=== PATIENT | female | born 1950 | race Caucasian/White ===

== ENCOUNTER 2019-10-24 13:48 | Outpatient (CLI) | payer MEDICARE ==
[~2019-10-24 13:48] MED LIST: Iopamidol-370 76% 500 ML 1 ML ONE
--- NOTE | 2019-10-24 15:05 | CT ---
EXAM: CT angiogram neck with IV contrast and 3-D reconstruction PROVIDED CLINICAL HISTORY: Carotid artery disease without cerebral infarction. Patient states narrowing seen on ultrasound exami nation involving the carotid arteries. COMPARISON: None FINDINGS: Vascular calcifications are seen in the aortic arch. There is a common origin of the innominate arter y and left common carotid artery with mild atherosclerotic plaque and narrowing involving the origin and proximal left common carotid artery. The innominate artery and bilateral subclavian arteri es are patent. There is mild degree of narrowing involving the right axillary artery due to an eccentric atherosclerotic plaque. There is atherosclerotic plaque and calcification seen involving the distal bilateral common carotid arteries with mild narrowing, but the degree of narrowing is less than 50%. Eccentric soft atherosclerotic plaque is seen in the distal left common carotid artery. Mild narrowing is seen invol ving each proximal internal carotid artery, but the degree of narrowing is less than 50%. Mild atherosclerotic calcifications are seen involving the carotid siphons. The origins of each vertebral artery are not well assessed, but there is question of severe narrowing involving the origin of the left vertebral artery. The remainder of the vertebral arteries demonstrate patency. Basilar artery is patent. The bilateral parotid and submandibular glands demonstrate a normal CT appearance. Prevertebral soft tissues have a normal appearance. Degenerative changes are seen in the cervical spine. IMPRESSION: 1. Atherosclerotic plaque and calcifications involving the distal bilateral common carotid arteries a nd the origin of each internal carotid artery with mild degrees of narrowing, but the degree of narrowing are less than 50%. 2. Suggestion of severe narrowing involving the origin of the left vertebral artery. Origin of the ri ght vertebral artery is obscured due to vascular calcifications.
== END 2019-10-24 13:49 | disposition home or self-care (01) ==
LOC: BICCT 13:48
PROVIDERS: ATTEND Physician Assistant
DX: I77.9 Disorder of arteries and arterioles, unspecified (principal); I65.23 Occlusion and stenosis of bilateral carotid arteries; I70.90 Unspecified atherosclerosis
CPT/HCPCS: 70498; 82565; Q9967

== ENCOUNTER 2020-03-10 17:03 | Inpatient (IN) | payer MEDICARE, OTHER ==
[~2020-03-10 17:03] MED LIST changes: +Benzocaine 20% Spray 60 ML CAN ONE; +Phenylephrine 0.25% Nasal Spray 15 ML BOT ONE
[2020-03-10] MEDS ORDERED: Fentanyl 100 MCG/2 ML VIAL ONE ×2 (17:21→17:50)
--- NOTE | 2020-03-10 17:47 | RAD ---
XR Chest 1 View Portable History: Angioedema. Comparison: Radiograph same day Findings: Anterior tube tip above the ashvin 2.1 cm. Enteric tube tip at the gastric body. Progressive left lung volume loss with atelectatic changes throughout the left upper lobe and left lo wer lobe. Moderate layering left effusion. Impression: Progressive volume loss of the left lung with enlarging left prior pleural effusion.
[2020-03-10 17:49] LABS: Actual Bicarbonate (HCO3a) 18.4 mEq/L (22-28); Analyzer IN Cardio ER; Base Excess (BEa) -7.4 mEq/L (-2.0 to +3.0); CO2 Tension 38.6 mmHg (35.0-45.0); Calcium, Ionized (arterial) 1.08 mmol/L (1.12-1.30); Carboxyhemoglobin (COHb) 0.6 gm% (0.0-3.0); Hemoglobin (Hb) 11.8 g/dL (12.0-16.0); O2 Tension (PaO2), arterial 144.9 mmHg (> 80.0); Potassium - ABG Lab 3.92 mmol/L (3.70-5.30)
[2020-03-10 17:50] LABS: Puncture Site LBA
[2020-03-10] MEDS ORDERED: fentaNYL Citrate/PF 2,000 MCG in Sodium Chloride 0.9% 60 ML IV SCH (18:00)
[2020-03-10] MEDS ORDERED: Acetaminophen 650 MG Suppository PR PRN (18:02)
--- NOTE | 2020-03-10 18:17 | PDOC.HHP ---
Hospitalist HPI - History of Present Illness History of Present Illness: This is a 69-year-old female patient with a history of atrial fibrillation, coronary disease and hypertension who was transferred from [place] on account of acute hypoxic respiratory failure requiring intubation. History was taken from chart and patient's daughter and granddaughter. According to patient's daughter, she complained of sore throat over the previous night and also called her in the middle of the night to converse although her co nversation did not make sense. This morning she remained unwell and was sent to the ED at [place] by her friend. On arrival it was noted that her face and tongue was swelling and she was in respiratory distress requiring intubation. Intubation was difficult and traumaticleading to some bleeding. She is also on Eliquis for A. fib and aspirin and Plavix as well. After intubation she was given epinephrine as she had mild drop in her blood pressure however this has become sustained on IV fluids and not requiring any pressors. She was assessed to have angioedema from the use of ramiprilACE inhibitor. Blood pressure at presentation was 99/63, she had a leukocytosis of 12.6, mild hyponatremia of 134, folate was low at 4 and TSH was elevated at 13.9. Chest x-ray was concerning for widened mediastinumED physician ordered a CTA to further evaluate that. Hospitalist was consulted to admit patient. Hospitalist ROS - Review of Systems ROS unobtainable: due to endotracheal tube Hospitalist History - Past Medical History Cardiac: reports: AFIB, HTN - Past Surgical History Other Surgical History: Fracture repair - Social History Smoking Status: Current every day smoker Alcohol: reports: Rare Living Situation: Alone Activity level: independent ambulation - Exam General - other findings: On ventilator support. Noncommunicating but spontaneous movements ENT - other findings: Bleeding from nose and mouth. Heart: RRR, no murmur, no gallops, normal peripheral pulses Respiratory - other findings: Bilateral wheezing. Gastrointestinal: soft, non-distended, normal bowel sounds Extremities: no cyanosis, no clubbing, no edema Hospitalist Results - Labs Lab results: ABG pH 7.30 (7.35-7.45) L 03/10/20 17:44 ABG pCO2 38.6 mmHg (35.0-45.0) 03/10/20 17:44 ABG pO2 144.9 mmHg (> 80.0) H 10/11/20 17:44 Hospitalist H&P A/P - Plan Plan: This is a 69-year-old female patient with a history of A. fib on Eliquis, hypertension who was brought brought in as a transfer from [place] on account of acute hypoxic respiratory failure secondary to angioedema requiring intubation. She will be admitted to the ICU. Acute hypoxic respiratory failure In the setting of angioedema Continue intubation Consult pulmonology. Hypertension Blood pressure stable Hold blood pressure medications for now Contraindicated YOAN inhibitors. A. fib Currently not in A. fib RVR We will hold Eliquis and monitor. Bleeding from mouth. Likely secondary to traumatic intubation We will hold aspirin and Plavix and Eliquis for tonight. Close monitoring Hemoglobin stable so far We will monitor. VT prophylaxisSCD
[2020-03-10 18:19] LABS: #Basophils 0.1 thou/uL (0.0-0.2); #Lymphocytes 0.7 thou/uL (1.20-3.40); #Monocytes 0.4 thou/uL (0.11-0.59); #Neutrophils 11.1 thou/uL (1.40-6.50); %Basophils 0.5 % (0.0-1.0); %Eosinophils 0.3 % (0.0-10.0); %Lymphocytes 5.4 % (21.0-51.0); %Monocytes 3.6 % (0.0-10.0); %Neutrophils 90.2 % (42.0-75.0); Hemoglobin 12.8 g/dL (12.0-16.0); Mean Corpuscular HGB CONC 33.4 g/dL (32.0-36.0); Mean Corpuscular Hemoglobin 32.6 pg (27.0-31.0); Mean Corpuscular Volume 97.6 fL (78.0-98.0); Mean Platelet Volume 9.8 fL (7.4-10.4); Platelet Count 155 thou/uL (130-400); RBC Distribution Width 14.3 % (11.5-14.5); Red Blood Cell (RBC) Count 3.92 mill/uL (4.20-5.40); White Blood Cell (WBC) Count 12.3 thou/uL (4.8-10.8)
[2020-03-10 18:23] LABS: INR-International Normal Ratio 1.2; PTT 24.4 sec (22.9-36.1); Prothrombin Time 15.3 sec (12.0-14.7)
[2020-03-10 18:37] LABS: ALT (SGPT) 9 U/L (8-55); AST (SGOT) 24 U/L (5-34); Alkaline Phosphatase 75 U/L (40-110); Anion Gap 17 mmol/L (10-20); BUN (Urea Nitrogen) 12 mg/dL (9.8-20.1); Bilirubin, Total 0.9 mg/dL (0.2-1.2); Calc. Creatinine Clearance 0 mL/min (70-130); Calcium 7.8 mg/dL (7.8-10.44); Carbon Dioxide 18 mmol/L (23-31); Chloride 103 mmol/L (98-107); Estimated GFR-MDRD 64; Globulin 2.3 g/dL (2.4-3.5); Glucose 125 mg/dL (80-115); Potassium 4.1 mmol/L (3.5-5.1); Protein, Total 6.3 g/dL (6.0-8.3); Sodium 134 mmol/L (136-145)
--- NOTE | 2020-03-10 18:41 | CT ---
CT Chest Abd Pelvis W Con History: Angioedema Comparison: None. Findings: Endotracheal tube tip is below the ashvin. The enteric tube tip is in the gastric body. Ate lectasis throughout the lung bases as well as right middle lobe, lingula, and posterior aspect of both upper lobes. No pneumothorax. No large effusion. Pulmonary trunk is enlarged. Small volume pericardial fluid. No mediastinal adenopathy. Hypodense cholelithiasis is present. Liver is unremarkable. Spleen is unremarkable. Mild pancreatic a trophy. No hydronephrosis. High-grade narrowing of the proximal 3 cm celiac artery, 70-80%, with peripheral f low. Celiac trunk is patent. Mild nodularity left adrenal gland. Moderate mucosal hyperenhancement throughout the colon and terminal ileum. No wall thickening or subm ucosal edema. No acute osseous and amounted. Sternum and manubrium are intact. Impression: 1. No acute inflammatory process within the chest, abdomen or pelvis. 2. High-grade atelectasis throughout the posterior aspect of the lungs. 3. Satisfactory location of the enteric and endotracheal tubes. 4. Angioedema related mucosal hyperenhancement of the distal small bowel and colon. 5. High-grade 70-80% narrowing of the superior mesenteric artery due to soft plaque with peripheral f low. 6. Hypodense cholelithiasis without cholecystitis.
[2020-03-10] MEDS ORDERED: Oxymetazoline HCl 0.05% (30 ML BOT) ONE (18:51)
[2020-03-10] MEDS ORDERED: Morphine 2 MG/ML VIAL SLOW IVP PRN (19:15)
[2020-03-10] MEDS ORDERED: Lorazepam 2 MG/ML VIAL SLOW IVP PRN (19:15)
[2020-03-10] MEDS ORDERED: Fentanyl BOLUS 250 ML IVPB PRN (19:15)
[2020-03-10] MEDS ORDERED: DISCONTINUE PREVIOUS NARCOTIC PAIN MEDICATIONS AND BENZODIAZEPINES FS SCH (19:15)
[2020-03-10] MEDS ORDERED: Propofol BOLUS 1,000 MG/100 ML VIAL IV PRN (19:15)
[2020-03-10] MEDS ORDERED: Sodium Chloride 0.9% 500 ML IV SCH (22:15)
[2020-03-10] MEDS ORDERED: Atropine Sulfate 1 mg/10 ml Syringe ONE (22:48)
[2020-03-10] MEDS ORDERED: Cyanocobalamin 1000 MCG/ML VIAL IM SCH (23:00)
--- NOTE | 2020-03-10 23:29 | RAD ---
XR Chest 1 View Portable History: Evaluate tube placement Comparison: Radiograph same day Findings: Enteric tube tip at the clavicular level. Enteric tube tip below diaphragm although out of field of view. Extensive lower lobe atelectasis. Impression: Satisfactory location of the enteric and endotracheal tubes.
[2020-03-10] MEDS ORDERED: Famotidine/PF 20 mg/2ml Vial SLOW IVP SCH (23:45)
[2020-03-10] MEDS: Sodium Chloride 0.9% 1,000 ML IV SCH (23:53)
[2020-03-10] MEDS: methylPREDNISolone Sod Succ/PF 125 MG/2 ML VIAL IVP SCH (23:54)
[2020-03-11] MEDS: Norepinephrine 8 MG/0.9% NS 250 ML IVPB SCH (01:57)
[2020-03-11 03:27] LABS: #Lymphocytes 0.8 thou/uL (1.20-3.40); #Monocytes 0.3 thou/uL (0.11-0.59); %Basophils 0.3 % (0.0-1.0); %Eosinophils 0.1 % (0.0-10.0); %Lymphocytes 6.3 % (21.0-51.0); %Monocytes 2.4 % (0.0-10.0); Hemoglobin 11.3 g/dL (12.0-16.0); Mean Corpuscular HGB CONC 34.2 g/dL (32.0-36.0); Mean Corpuscular Hemoglobin 33.2 pg (27.0-31.0); Mean Platelet Volume 10.3 fL (7.4-10.4); Platelet Count 157 thou/uL (130-400); RBC Distribution Width 14.5 % (11.5-14.5); Red Blood Cell (RBC) Count 3.41 mill/uL (4.20-5.40); White Blood Cell (WBC) Count 12.1 thou/uL (4.8-10.8)
[2020-03-11 03:45] LABS: Anion Gap 17 mmol/L (10-20); BUN (Urea Nitrogen) 13 mg/dL (9.8-20.1); Calc. Creatinine Clearance 94 mL/min (70-130); Calcium 7.7 mg/dL (7.8-10.44); Carbon Dioxide 14 mmol/L (23-31); Chloride 107 mmol/L (98-107); Estimated GFR-MDRD 69; Glucose 129 mg/dL (80-115); Potassium 3.9 mmol/L (3.5-5.1); Sodium 134 mmol/L (136-145)
[2020-03-11] MEDS: Sodium Chloride 0.9% 1,000 ML IV SCH ×3 (05:54→20:19)
[2020-03-11 07:15] LABS: Analyzer IN Cardio ER; Base Excess (BEa) -10.6 mEq/L (-2.0 to +3.0); CO2 Tension 32.1 mmHg (35.0-45.0); Calcium, Ionized (arterial) 1.16 mmol/L (1.12-1.30); Carboxyhemoglobin (COHb) 0.3 gm% (0.0-3.0); Hemoglobin (Hb) 11.9 g/dL (12.0-16.0); O2 Tension (PaO2), arterial 74.7 mmHg (> 80.0); Potassium - ABG Lab 3.66 mmol/L (3.70-5.30); pH, Arterial 7.29 (7.35-7.45)
[2020-03-11 07:20] LABS: ALV-art Gradient 170.375 mmHg (0-20); Puncture Site LRA
[2020-03-11] MEDS ORDERED: methylPREDNISolone Sod Succ 40 MG VIAL IVP SCH (08:44)
[2020-03-11] MEDS ORDERED: FLU VACC QS2020-21(65YR UP)/PF 240 MCG/0.7 ML SYRINGE IM ONE (09:00)
--- NOTE | 2020-03-11 10:15 | CON ---
DATE OF CONSULTATION: HISTORY OF PRESENT ILLNESS: Kusum Kearns is a 69-year-old female from [place], [place], who was intubated for angioedema presumably. Apparently, she took some YOAN. She is in the ICU. She is apparently bleeding from the back of her nose. She was taking Eliquis about 11 o'clock at midnight. She started having peak pressures. Attending hospice called me to notify me about the problems. Apparently had called the ER physician who appears did a bronchoscopy. Said the airway was patent. I attempted to decrease the tidal volume to see whether the peak pressures were decreased. This morning, she is intubated and sedated. Additional information is outlined. PAST MEDICAL HISTORY: Hypothyroidism, diabetes, hypertension, atrial fibrillation, schizophrenia. PREVIOUS SURGERIES: Has otherwise included wrist surgeries, leg stent. SOCIAL HISTORY: Smoker a pack a day. HOME MEDICINES: 1. Metformin 500. 2. Venlafaxine 150. 3. Altace 5. 4. Synthroid 137. 5. B12. 6. Plavix 75. 7. . 8. Coreg 6.25. 9. Lipitor 20. 10. Aspirin 81. 11. Eliquis 5 mg. ALLERGIES: NONE. PHYSICAL EXAMINATION: VITAL SIGNS: Saturations are 93%, pulse 56, blood pressure 100/80, respiratory rate 20. CHEST: Decreased breath sounds. No wheezing. CARDIAC: Normal S1 and S2. No gallops. ABDOMEN: No masses. LABORATORY DATA: X-ray shows what appears to be left lung atelectasis. PO2 is 74, pCO2 of pressure support 10, PEEP of 5. Lytes are normal. IMPRESSION: Respiratory failure, angioedema, left lung atelectasis, history of apparently schizophrenia, hypertension, diabetes in the process of trying to get information from family members. Otherwise, continue supportive care, PT, neb treatments, steroids. Consider a bronchoscopy to assess the airways. This is a 45-minute critical care time. Job ID: [id number]
--- NOTE | 2020-03-11 10:20 | RAD ---
EXAM: CHEST ONE VIEW HISTORY: Central line placement. COMPARISON: 03/10/2020 FINDINGS: Endotracheal tube and nasogastric tube remain in place and unchanged in position. There has been inte rval placement of a left subclavian central venous catheter with tip overlying the expected location of the cavoatrial junction. No pneumothorax is seen, but there is a pleural-based density pr esent at the left lung apex likely related to pleural fluid or possibly overlying soft tissue density. However, this was not appreciated on the prior exam. There are increased linear densities wi thin the left hilar region and left lung base which could be related to volume loss. Patchy parenchymal densities are seen in the right infrahilar and retrocardiac locations which could be rela mart to atelectasis or pneumonitis. Cardiac silhouette is magnified by projection but does appear mildly enlarged. Vascular calcifications are seen in an ectatic thoracic aorta. IMPRESSION: 1. Interval placement of a left subclavian central venous catheter without pneumothorax visualized; h owever, there is minimal pleural-based density at the left lung apex could be related to either minimal amount of pleural fluid or overlying soft tissue density. 2. Patchy parenchymal densities at each lung base which may represent atelectasis versus bibasilar pn eumonia. Follow-up to resolution is recommended. 3. Left perihilar linear and minimal patchy densities present which could be related to volume loss o r pneumonitis.
[2020-03-11] MEDS: Cefepime 1 GM in Sodium Chloride 0.9% 100 ML IVPB SCH ×2 (10:26→20:51)
[2020-03-11] MEDS: Propofol 1,000 MG/100 ML VIAL IV PRN ×2 (10:27→17:48)
[2020-03-11] MEDS: Famotidine/PF 20 mg/2ml Vial SLOW IVP SCH ×2 (10:27→20:51)
[2020-03-11] MEDS: methylPREDNISolone Sod Succ 40 MG VIAL IVP SCH ×2 (10:33→17:47)
[2020-03-11] MEDS: methylPREDNISolone Sod Succ/PF 125 MG/2 ML VIAL IVP SCH (10:46)
--- NOTE | 2020-03-11 10:46 | OP ---
DATE OF PROCEDURE: 03/11/2020 PREOPERATIVE DIAGNOSES: 1. Acute angioedema. 2. Acute respiratory failure. POSTOPERATIVE DIAGNOSES: 1. Acute angioedema. 2. Acute respiratory failure. PROCEDURE PERFORMED: Placement of triple-lumen left subclavian central venous catheter. INDICATIONS FOR PROCEDURE: A 69-year-old morbidly obese woman, admitted in the ICU with acute angioedema and respiratory failure. The patient is requiring vasopressor support. I was asked to place a central venous access to facilitate therapeutic interventions. DESCRIPTION OF PROCEDURE: Informed consent was obtained from the patient's power of family law attorney. The patient was placed in supine position. Left chest wall was sterilely prepped and draped in the usual fashion. Skin below the left clavicle was anesthetized with 1% lidocaine. Left subclavian vein was cannulated with an 18-gauge introducer needle, returning dark venous blood. Guidewire was passed through the needle and advanced into the left subclavian vein without resistance. The needle was withdrawn over the guidewire. A stab incision was made adjacent to the guidewire using 11 scalpel. Dilator was passed over the guidewire, dilating the subcutaneous tissues. Dilator was removed and a triple-lumen central venous catheter was advanced over the guidewire and placed in the left subclavian vein without resistance, stopping at the 18-cm myranda. Guidewire was removed. Dark venous blood was aspirated from all 3 ports, which were individually flushed with saline. The catheter was secured to anterior chest wall using 3-0 silk suture at 2 points. Sterile dressings were applied. The patient tolerated this procedure without any apparent complications. Chest x-ray was obtained, confirming proper placement and no pneumothorax present. Job ID: [id number]
[2020-03-11] MEDS: fentaNYL Citrate/PF 2,000 MCG in Sodium Chloride 0.9% 60 ML IV SCH (11:11)
--- NOTE | 2020-03-11 12:44 | RAD ---
XR Wrist 3 Rt View STANDARD History: Comparison from surgery. Postsurgical follow-up Comparison: Radiograph December 2019 Findings: Satisfactory postoperative appearance distal radius fracture. Nonunion ulnar styloid fractu re. Subcortical cysts of the scaphoid and lunate at the scapholunate interval. Impression: 1. Healing distal radius fracture. 2. Nonunion ulnar styloid fracture. 3. Subcortical cyst developing of the proximal pole scaphoid and lateral margin of the lunate suggest ing scapholunate ligament injury and micromotion.
--- NOTE | 2020-03-11 15:00 | PDOC.HOSPP ---
- Objective Vital Signs & Weight: Vital Signs (12 hours) Temp Pulse Resp BP Pulse Ox 03/11/20 14:00 20 03/11/20 12:00 98.6 F 20 03/11/20 10:23 60 133/72 03/11/20 10:22 62 20 96 03/11/20 10:00 20 03/11/20 08:00 98.6 F 20 90 L 03/11/20 06:40 60 74/66 L 03/11/20 06:36 49 L 20 93 L 03/11/20 06:00 20 03/11/20 04:00 98.8 F 20 Weight Admit Weight 198 lb 13.711 oz Weight 198 lb 13.711 oz Most Recent Monitor Data Heart Rate from ECG 61 NIBP 98/42 NIBP BP-Mean 60 Respiration from ECG 20 SpO2 100 I&O: 03/10/20 03/11/20 03/12/20 06:59 06:59 06:59 Intake Total 1643.2 500 Output Total 325 240 Balance 1318.2 260 Result Diagrams: 03/11/20 03:05 03/11/20 03:05 Hospitalist ROS - Medication Medications: Active Medications Generic Name Dose Route Start Last Admin Trade Name Freq PRN Reason Stop Dose Admin Albuterol/Ipratropium 3 ml 03/11/20 10:30 03/11/20 10:22 Ipratropium/Albuterol Sulfate 3 Ml Neb NEB 3 ml [id number] CASSIUS Administration Famotidine 20 mg 03/11/20 09:00 03/11/20 10:27 Famotidine/Pf 20 Mg/2ml Vial SLOW IVP 20 mg BID CASSIUS Administration Fentanyl Citrate 2,000 mcg/ 100 mls @ 0 mls/hr 03/10/20 19:15 03/11/20 11:11 Sodium Chloride IV 04/09/20 19:15 100 mls INF CASSIUS Administration Protocol Per Protocol Sodium Chloride 1,000 mls @ 150 mls/hr 03/10/20 23:00 03/11/20 10:29 Normal Saline 0.9% IV 1,000 mls .Q6H40M CASSIUS Administration Norepinephrine Bitartrate 250 mls @ 0 mls/hr 03/11/20 02:00 03/11/20 01:57 Levophed IVPB 250 mls INF CASSIUS Administration Protocol Titrate Cefepime HCl 1 gm/ Sodium 100 mls @ 200 mls/hr 03/11/20 09:00 03/11/20 10:26 Chloride IVPB 100 mls Q12HR CASSIUS Administration Methylprednisolone Sodium Succinate 40 mg 03/11/20 10:00 03/11/20 10:33 Methylprednisolone Sod Succ 40 Mg Vial IVP 40 mg 0200,1000,1800 CASSIUS Administration Propofol 1,000 mg 03/10/20 19:15 03/11/20 10:27 Propofol 1,000 Mg/100 Ml Vial IV 04/09/20 19:15 1,000 mg INF PRN Administration TO ACHIEVE GOAL RASS Protocol
--- NOTE | 2020-03-11 15:28 | PDOC.HOSPP ---
- Subjective Subjective: Patient was seen examined. She remains intubated. Discussed with client delivery specialist, Dr. Mueller. Appreciate his help - Objective Vital Signs & Weight: Vital Signs (12 hours) Temp Pulse Resp BP Pulse Ox 03/11/20 14:00 20 03/11/20 12:00 98.6 F 20 03/11/20 10:23 60 133/72 03/11/20 10:22 62 20 96 03/11/20 10:00 20 03/11/20 08:00 98.6 F 20 90 L 03/11/20 06:40 60 74/66 L 03/11/20 06:36 49 L 20 93 L 03/11/20 06:00 20 03/11/20 04:00 98.8 F 20 Weight Admit Weight 198 lb 13.711 oz Weight 198 lb 13.711 oz Most Recent Monitor Data Heart Rate from ECG 61 NIBP 98/42 NIBP BP-Mean 60 Respiration from ECG 20 SpO2 100 I&O: 03/10/20 03/11/20 03/12/20 06:59 06:59 06:59 Intake Total 1643.2 500 Output Total 325 240 Balance 1318.2 260 Result Diagrams: 03/11/20 03:05 03/11/20 03:05 Radiology Reviewed by me: Yes EKG Reviewed by me: Yes Hospitalist ROS - Medication Medications: Active Medications Generic Name Dose Route Start Last Admin Trade Name Freq PRN Reason Stop Dose Admin Albuterol/Ipratropium 3 ml 03/11/20 10:30 03/11/20 10:22 Ipratropium/Albuterol Sulfate 3 Ml Neb NEB 3 ml [id number] CASSIUS Administration Famotidine 20 mg 03/11/20 09:00 03/11/20 10:27 Famotidine/Pf 20 Mg/2ml Vial SLOW IVP 20 mg BID CASSIUS Administration Fentanyl Citrate 2,000 mcg/ 100 mls @ 0 mls/hr 03/10/20 19:15 03/11/20 11:11 Sodium Chloride IV 04/09/20 19:15 100 mls INF CASSIUS Administration Protocol Per Protocol Sodium Chloride 1,000 mls @ 150 mls/hr 03/10/20 23:00 03/11/20 10:29 Normal Saline 0.9% IV 1,000 mls .Q6H40M CASSIUS Administration Norepinephrine Bitartrate 250 mls @ 0 mls/hr 03/11/20 02:00 03/11/20 01:57 Levophed IVPB 250 mls INF CASSIUS Administration Protocol Titrate Cefepime HCl 1 gm/ Sodium 100 mls @ 200 mls/hr 03/11/20 09:00 03/11/20 10:26 Chloride IVPB 100 mls Q12HR CASSIUS Administration Methylprednisolone Sodium Succinate 40 mg 03/11/20 10:00 03/11/20 10:33 Methylprednisolone Sod Succ 40 Mg Vial IVP 40 mg 0200,1000,1800 CASSIUS Administration Propofol 1,000 mg 03/10/20 19:15 03/11/20 10:27 Propofol 1,000 Mg/100 Ml Vial IV 04/09/20 19:15 1,000 mg INF PRN Administration TO ACHIEVE GOAL RASS Protocol - Exam General - other findings: Intubated and sedated Eye: PERRL ENT: normocephalic atraumatic Neck: supple Heart: RRR Respiratory: CTAB Gastrointestinal: soft Extremities: no cyanosis Skin: normal turgor Neurological - other findings: Intubated and sedated Hosp A/P - Plan Patient is a 69 years old female who has significant past medical history of atrial fib on Eliquis, hypertension, who was transferred from [place] secondary to acute hypoxic respiratory failure due to angioedema, status post intubation. Acute hypoxic respiratory failure -secondary to angioedema --Status post bronchoscopy by Dr. Mueller --cont ventilator support as per pulmonoology --cont empiric IV abx, steroids, nebs as per client delivery specialist Angioedema --d/t ACEi, add to allergy list Atrial Fib --Eliquis on hold d/t bleeding risk from traumatic intubation Hypothyroidism --resume home med when able HTN --BP slightly hypotensive
[2020-03-11 16:12] LABS: SARS-CoV-2 MS2 Positive; SARS-CoV-2 N Gene Negative; SARS-CoV-2 S Gene Negative; SARS-CoV-2 by NAA Not Detected (NotDetected); SARS-CoV-2 orf1ab Negative
[2020-03-11 16:16] LABS: Troponin I 0.136 ng/mL (< 0.028)
--- NOTE | 2020-03-11 19:15 | CON ---
DATE OF CONSULTATION: 03/11/2020 REQUESTING PHYSICIAN: Dr. Tony Mueller. CONSULTING PHYSICIAN: Dr. Rick Richmond. REASON FOR CONSULTATION: Right distal radius metaphyseal fracture postop 2 months, lost to follow up. BRIEF CLINICAL HISTORY: Kusum is a 69-year-old female, who was admitted to [facility] after being transferred from [facility] for acute angioedema and respiratory failure. Our service has been consulted for a right distal radius metaphyseal fracture, which was operated on by Dr. Arana on January 17, 2020. Apparently, she has been lost to follow up. I could not find any x-rays on the patient between now and then. Therefore, the Pulmonary Service requested orthopedic evaluation of the right distal radius. There are no problems noted and this is just a routine consult. PHYSICAL EXAMINATION: Visual inspection of the right upper extremity demonstrates the patient to have a scar which is healed and closed. There is no significant swelling, it is not tight. She does not respond. She is intubated currently and on propofol drip. Otherwise, exam is limited, this does not appear to be a problematic wrist. IMAGING STUDIES: Three views of right wrist demonstrate hardware to appear very near as it was placed two months ago. No lytic changes. No failure. No loosening or backing out of hardware is noted on the three views. IMPRESSION: A 69-year-old female, lost to follow up right distal radius metaphyseal fracture at 7 weeks postop. PLAN: 1. Radiographs were obtained and confirmed hardware placement. 2. We will reestablish a clinical care once the patient is recovering from her respiratory failure. Reconsult as needed. Job ID: [id number]
--- NOTE | 2020-03-11 19:38 | CON ---
DATE OF CONSULTATION: HISTORY OF PRESENT ILLNESS: Kusum Kearns is a 69-year-old white female from [place], admitted with acute hypoxic respiratory failure requiring intubation. In February 2005, she underwent cardiac catheterization by Dr. Elizabeth, which revealed no significant coronary artery disease, no renal artery stenosis, and normal left ventricular function. She currently is followed by Dr. Perez for atrial fibrillation, carotid artery disease, and peripheral vascular disease. She was sent to the emergency room in [place] due to face and tongue swelling as well as respiratory distress. She underwent intubation. She currently remains intubated, cannot give any history. PAST MEDICAL HISTORY: Significant for hypertension, diabetes, atrial fibrillation, schizophrenia, hypothyroidism. OPERATIONS: Tubal ligation, ankle surgery, left popliteal GERIATRIC NURSE ASSISTANT. MEDICATIONS: When she was last seen in the office include: 1. Plavix 75 mg daily. 2. Cilostazol 100 mg b.i.d. 3. Levothyroxine 137 mcg daily. 4. Atorvastatin 20 mg daily. 5. Pramipexole 0.5 mg daily. 6. Venlafaxine 150 mg daily. 7. Carvedilol 6.25 b.i.d. 8. Ramipril 5 mg daily. 9. Aspirin 81 daily. 10. Eliquis 5 mg b.i.d. 11. Metformin 500 mg daily. 12. Folic acid 400 mcg daily. ALLERGIES: NONE. SOCIAL HISTORY: She smokes 6 to 10 cigarettes per day. REVIEW OF SYSTEMS: Unobtainable. PHYSICAL EXAMINATION: VITAL SIGNS: Blood pressure 98/42, pulse of 61. There is a rhythm strip in the chart when she does have some extreme sinus bradycardia with heart rate of 36 per minute around 2248 hours last evening. CHEST: Reveals bilateral rhonchi. CARDIOVASCULAR: S1 and S2 normal without any S3, S4, or murmurs. ABDOMEN: Obese, quiet bowel sounds. EXTREMITIES: Reveal no clubbing, cyanosis, or edema. NEUROLOGIC: The patient is sedated. LABORATORY DATA: EKG-I do not see an EKG on the chart and will be ordered. Hemoglobin 11.3, hematocrit 33.1, white count 12,100, platelets 157,000. PH 7.29, pCO2 of 32.1, pO2 of 74.7. Sodium 134, potassium 3.9, chloride 107, carbon dioxide 14, creatinine 0.83, BUN 13. TSH 13.9884. IMPRESSION: 1. Respiratory arrest, presumably due to angioedema from Ramipril. 2. Hypertension. 3. Diabetes. 4. Hypercholesterolemia. 5. Atrial fibrillation, although she is in sinus rhythm at this time. 6. Peripheral vascular disease. 7. Carotid artery disease. 8. Obesity. PLAN: EKG and cardiac enzymes will be obtained. She did have a significant bradycardic episode, however, has not had any recurrence. We will continue to monitor with you. Job ID: [id number] MONIKA
[2020-03-11] MEDS: Venlafaxine HCl XR 150 MG CAP PO SCH (20:53)
[2020-03-11] MEDS ORDERED: Carvedilol 6.25 MG TAB PO SCH (21:00)
[2020-03-11] MEDS ORDERED: Non-Formulary Item 1 EACH (Venlafaxine Hcl [Venlafaxine Hcl Er] 150 MG Tab.Er.24) PO SCH (21:00)
[2020-03-12] MEDS: Sodium Chloride 0.9% 1,000 ML IV SCH ×3 (02:22→14:44)
[2020-03-12] MEDS: Propofol 1,000 MG/100 ML VIAL IV PRN ×3 (02:23→17:43)
[2020-03-12] MEDS: methylPREDNISolone Sod Succ 40 MG VIAL IVP SCH ×3 (02:23→17:44)
[2020-03-12 05:21] LABS: #Lymphocytes 0.5 thou/uL (1.20-3.40); #Monocytes 0.4 thou/uL (0.11-0.59); #Neutrophils 4.1 thou/uL (1.40-6.50); %Eosinophils 0.1 % (0.0-10.0); %Lymphocytes 10.3 % (21.0-51.0); %Monocytes 7.2 % (0.0-10.0); %Neutrophils 82.4 % (42.0-75.0); Anion Gap 13 mmol/L (10-20); BUN (Urea Nitrogen) 11 mg/dL (9.8-20.1); Calc. Creatinine Clearance 103 mL/min (70-130); Calcium 8.1 mg/dL (7.8-10.44); Carbon Dioxide 19 mmol/L (23-31); Chloride 111 mmol/L (98-107); Estimated GFR-MDRD 73; Glucose 130 mg/dL (80-115); Hemoglobin 9.4 g/dL (12.0-16.0); Mean Corpuscular HGB CONC 33.3 g/dL (32.0-36.0); Mean Corpuscular Hemoglobin 32.6 pg (27.0-31.0); Mean Corpuscular Volume 97.6 fL (78.0-98.0); Mean Platelet Volume 10.5 fL (7.4-10.4); Platelet Count 117 thou/uL (130-400); Platelet Morphology Comment Appears Decreased; Potassium 3.6 mmol/L (3.5-5.1); RBC Distribution Width 14.8 % (11.5-14.5); Red Blood Cell (RBC) Count 2.87 mill/uL (4.20-5.40); Sodium 139 mmol/L (136-145); White Blood Cell (WBC) Count 4.9 thou/uL (4.8-10.8)
[2020-03-12] MEDS: Levothyroxine Sodium 112 MCG TAB PO SCH (05:25)
[2020-03-12] MEDS: Levothyroxine Sodium 25 MCG TAB PO SCH (05:25)
[2020-03-12] MEDS: fentaNYL Citrate/PF 2,000 MCG in Sodium Chloride 0.9% 60 ML IV SCH ×2 (06:00→21:35)
[2020-03-12 07:37] LABS: Actual Bicarbonate (HCO3a) 18.9 mEq/L (22-28); Base Excess (BEa) -5.6 mEq/L (-2.0 to +3.0); CO2 Tension 33.3 mmHg (35.0-45.0); Carboxyhemoglobin (COHb) 0.3 gm% (0.0-3.0); Hemoglobin (Hb) 9.7 g/dL (12.0-16.0); O2 Tension (PaO2), arterial 79.7 mmHg (> 80.0); Potassium - ABG Lab 3.71 mmol/L (3.70-5.30); pH, Arterial 7.37 (7.35-7.45)
[2020-03-12 07:50] LABS: ALV-art Gradient 235.175 mmHg (0-20); Puncture Site RRA
[2020-03-12] MEDS ORDERED: DC Sedation Protocol FS ONE (08:46)
[2020-03-12] MEDS ORDERED: Non-Formulary Item 1 EACH (Levothyroxine Sodium [Levothyroxine Sodium] 137 MCG Tablet) PO SCH (09:00)
--- NOTE | 2020-03-12 09:15 | PRG ---
DATE OF SERVICE: 03/12/2020 SUBJECTIVE: This morning sedation was turned off. She is more responsive. OBJECTIVE: VITAL SIGNS: Saturations are 98%, blood pressure 130/60, pulse rate 18. CHEST: Decreased breath sounds, bilateral rhonchi. CARDIAC: Normal S1 and S2. No masses. LABORATORY DATA: X-ray shows a questionable left-sided infiltrate. PO2 is 79, [id number] ph 7.38, Lytes are normal. Glucose 130. Troponin iselevated . White count 4000, H and H decreased 9 and 28. IMPRESSION: Respiratory failure, angioedema, hypertension, atrial fibrillation, recent fracture, morbid obesity, tobacco abuse. PLAN: We try and wean and extubate today. TIME SPENT: One-half hour of critical time. Job ID: [id number] MTDD
--- NOTE | 2020-03-12 09:20 | RAD ---
PORTABLE CHEST: Date: 03/12/2020 HISTORY: Intubation, on ventilator. CCU follow-up. COMPARISON: 03/11/2020. FINDINGS/IMPRESSION: ET tube, NG tube, and central lines are unchanged. Linear atelectasis in the left mid lung is pronounced today. Hazy opacity of the left lung may repres ent fluid layering posteriorly. Atelectasis and/or infiltrate in the left lung base. Mild vascular en gorgement. Cardiomegaly. No acute change from yesterday. POS: AGW
[2020-03-12] MEDS: Famotidine/PF 20 mg/2ml Vial SLOW IVP SCH ×2 (09:26→20:33)
[2020-03-12] MEDS: Cefepime 1 GM in Sodium Chloride 0.9% 100 ML IVPB SCH ×2 (09:26→20:31)
[2020-03-12] MEDS ORDERED: hydrALAZINE 20 MG/ML VIAL SLOW IVP PRN (09:35)
[2020-03-12] MEDS ORDERED: Magnesium 2 GM/50 ML 2 GM in Premix Bag 1 BAG IVPB SCH (09:45)
[2020-03-12] MEDS ORDERED: Diltiazem 125 MG in Sodium Chloride 0.9% 100 ML IVPB SCH (09:45)
[2020-03-12] MEDS ORDERED: Propofol 1,000 MG/100 ML VIAL IV ONE (09:56)
[2020-03-12] MEDS ORDERED: Ventilator Sedation Protocol 1 EACH FS SCH (10:00)
--- NOTE | 2020-03-12 10:04 | OP ---
DATE OF PROCEDURE: 03/11/2020 PROCEDURE PERFORMED: Diagnostic and therapeutic bronchoscopy. INDICATION: High-peak pressure, left lung atelectasis. POSTBRONCHOSCOPY DIAGNOSIS: High-peak pressure, left lung atelectasis. DESCRIPTION OF PROCEDURE: After informed consent, the patient intubated in the vent and sedated. A bite block in place, adapter on the endotracheal tube. Flexible Olympus bronchoscope was then passed. Distal trachea had copious amounts of secretions, suctioned and lavaged to clear. The left lung had a large volume of pus and mucoid secretions at the basilar segments, which was suctioned and lavaged to clear. Thereafter, the entire left lung upper and lower lobes were visualized. No endobronchial obstruction or blood or pus seen. Right lung was inspected thereafter. This side, less amount of mucus was also suctioned and lavaged to clear. Thereafter, the right upper and right middle lobe were visualized without any endobronchial obstruction or blood or pus seen. Washings were sent for Gram stain, C and S. Otherwise, the patient tolerated the procedure well. Plan is to hopefully try and wean in the next 24 to 48 hours. Job ID: [id number]
[2020-03-12] MEDS: Budesonide 0.25 MG/2 ML NEB INH SCH ×4 (10:07→22:10)
--- NOTE | 2020-03-12 10:16 | RAD ---
XR Chest 1 View Portable HISTORY: Respiratory failure COMPARISON: Earlier exam of 5:09 AM from same date FINDINGS: There has been interval removal of the nasogastric tube since the earlier exam. Other line and tube placements are unchanged in position. There is worsening of opacities in the left lung and new opacities have developed in the right lung since the previous study. The heart size enlarged. No pneumothoraces or large effusions are seen. IMPRESSION: Interval worsening of lung findings since earlier exam
[2020-03-12] MEDS ORDERED: DISCONTINUE PREVIOUS NARCOTIC PAIN MEDICATIONS AND BENZODIAZEPINES FS SCH (10:30)
[2020-03-12] MEDS ORDERED: Propofol BOLUS 1,000 MG/100 ML VIAL IV PRN (10:30)
[2020-03-12] MEDS ORDERED: Morphine 2 MG/ML VIAL SLOW IVP PRN (10:30)
[2020-03-12] MEDS ORDERED: Fentanyl BOLUS 250 ML IVPB PRN (10:30)
--- NOTE | 2020-03-12 11:14 | PRG ---
DATE OF SERVICE: 03/12/2020 SUBJECTIVE: Kusum Kearns, who was extubated about 0845 hours this morning as she was doing well. This subsequently developed hypertension, respiratory distress, marked wheezing or rhonchi. She given neb treatments without any relief. She was placed on a Ventimask. Her sats dropped in the 70s or 80s. Heart rate was 130. Systolic blood pressure 200. She had diffuse wheezing or rhonchi bilaterally. She became clearly encephalopathic. She was back for a period of time. We put her in a bite block. She did not open her mouth and therefore 7.5 endotracheal tube was passed via the right nostril, placed above the ashvin. Both lungs inspected rapidly. There was no endobronchial disease or blood or pus. She is connected to volume cycle respirator. At this stage, she is not weanable. IMPRESSION AND PLAN: 1. Respiratory failure, rule out CHF. 2. Angioedema. 3. Obesity. 4. Tobacco abuse. 5. COPD. Await results of the echocardiogram that has done earlier today. Continue broad-spectrum antibiotics, neb treatments, supportive care, steroids. One-half hour of critical time exclusive of the intubation. Job ID: [id number]
[2020-03-12] MEDS ORDERED: Furosemide 40 MG/4 ML VIAL IVP SCH (11:15)
[2020-03-12] MEDS: Lorazepam 2 MG/ML VIAL SLOW IVP PRN (13:12)
[2020-03-12 13:41] LABS: Base Excess (BEa) -8.7 mEq/L (-2.0 to +3.0); CO2 Tension 55.5 mmHg (35.0-45.0); Calcium, Ionized (arterial) 1.27 mmol/L (1.12-1.30); Hemoglobin (Hb) 11.7 g/dL (12.0-16.0); O2 Tension (PaO2), arterial 76.8 mmHg (> 80.0); Potassium - ABG Lab 3.86 mmol/L (3.70-5.30)
[2020-03-12 13:52] LABS: Puncture Site RRA; pH, Arterial 7.17 (7.35-7.45)
[2020-03-12 13:53] LABS: ALV-art Gradient 210.325 mmHg (0-20)
[2020-03-12] MEDS: Rocuronium Bromide 50 MG/5 ML VIAL IVP PRN (14:34)
[2020-03-12] MEDS: Norepinephrine 8 MG/0.9% NS 250 ML IVPB SCH (15:01)
--- NOTE | 2020-03-12 15:48 | PDOC.HOSPP ---
- Subjective Subjective: Pt was seen and examined at bedside. Updated daughter on the phone. Patient was extubated this morning, however, she was required to place back on the vent after short period. CXR reviewed, vascular congestion. Pt started on IV diuretic. - Objective Vital Signs & Weight: Vital Signs (12 hours) Temp Pulse Resp Pulse Ox 03/12/20 13:57 114 H 03/12/20 10:03 140 H 03/12/20 09:45 92 L 03/12/20 07:17 54 L 03/12/20 06:00 20 03/12/20 04:00 98.1 F 20 Weight Admit Weight 198 lb 13.711 oz Weight 208 lb 12.444 oz Most Recent Monitor Data Heart Rate from ECG 115 NIBP 101/67 NIBP BP-Mean 97 Respiration from ECG 12 SpO2 92 I&O: 03/11/20 03/12/20 03/13/20 06:59 06:59 06:59 Intake Total 1643.2 4549.7 Output Total 325 2235 Balance 1318.2 2314.7 Result Diagrams: 03/12/20 03:57 03/12/20 03:57 Radiology Reviewed by me: Yes EKG Reviewed by me: Yes Hospitalist ROS - Medication Medications: Active Medications Generic Name Dose Route Start Last Admin Trade Name Freq PRN Reason Stop Dose Admin Albuterol/Ipratropium 3 ml 03/11/20 10:30 03/12/20 13:56 Ipratropium/Albuterol Sulfate 3 Ml Neb NEB 3 ml [id number] CASSIUS Administration Budesonide 0.25 mg 03/12/20 10:30 03/12/20 13:56 Budesonide 0.25 Mg/2 Ml Neb INH 0.25 mg [id number] CASSIUS Administration Famotidine 20 mg 03/11/20 09:00 03/12/20 09:26 Famotidine/Pf 20 Mg/2ml Vial SLOW IVP 20 mg BID CASSIUS Administration Norepinephrine Bitartrate 250 mls @ 0 mls/hr 03/11/20 02:00 03/12/20 15:01 Levophed IVPB 250 mls INF CASSIUS Administration Protocol Titrate Cefepime HCl 1 gm/ Sodium 100 mls @ 200 mls/hr 03/11/20 09:00 03/12/20 09:26 Chloride IVPB 100 mls Q12HR CASSIUS Administration Diltiazem HCl 125 mg/ Sodium 125 mls @ 10 mls/hr 03/12/20 09:45 03/12/20 10:36 Chloride IVPB 125 mls INF CASSIUS Administration Protocol 10 MG/HR Sodium Chloride 1,000 mls @ 50 mls/hr 03/12/20 14:45 03/12/20 14:44 Normal Saline 0.9% IV 1,000 mls .Q20H CASSIUS Administration Levothyroxine Sodium 112 mcg 03/12/20 06:00 03/12/20 05:25 Levothyroxine Sodium 112 Mcg Tab PO 112 mcg 0600 CASSIUS Administration Levothyroxine Sodium 25 mcg 03/12/20 06:00 03/12/20 05:25 Levothyroxine Sodium 25 Mcg Tab PO 25 mcg 0600 CASSIUS Administration Lorazepam 2 mg 03/12/20 10:30 03/12/20 13:12 Lorazepam 2 Mg/Ml Vial SLOW IVP 04/11/20 10:30 2 mg Q1H PRN Administration Breakthrough agitation Methylprednisolone Sodium Succinate 40 mg 03/11/20 10:00 03/12/20 09:31 Methylprednisolone Sod Succ 40 Mg Vial IVP 40 mg 0200,1000,1800 CASSIUS Administration Rocuronium [place] 50 mg 03/12/20 14:25 03/12/20 14:34 Rocuronium [place] 50 Mg/5 Ml Vial IVP 03/13/20 14:26 50 mg Q2H PRN Administration movement/vent resistance/agita Sodium Chloride 10 ml 03/11/20 21:00 03/12/20 09:27 Flush - Normal Saline 10 Ml Syringe IVF 10 ml Q12HR CASSIUS Administration Venlafaxine HCl 150 mg 03/11/20 21:00 03/11/20 20:53 Venlafaxine Hcl Xr 150 Mg Cap PO 150 mg QPM CASSIUS Administration - Exam General - other findings: intubated and sedated Eye: PERRL ENT: normocephalic atraumatic Neck: supple Heart: RRR Respiratory: rhonchi Gastrointestinal: soft Extremities: no cyanosis Skin: normal turgor Neurological - other findings: intubated and sedated Hosp A/P - Plan Patient is a 69 years old female who has significant past medical history of atrial fib on Eliquis, hypertension, who was transferred from [place] secondary to acute hypoxic respiratory failure due to angioedema, status post intubation. Acute hypoxic respiratory failure -secondary to angioedema/CHF --remains intubated --Status post bronchoscopy by Dr. Mueller --cont ventilator support as per pulmonoology --cont empiric IV abx, steroids, nebs as per train station server CHF exac, probably acute on chronic, unknown type. Echo pending --cont IV diuresis, follow Echo Angioedema --d/t ACEi, add to allergy list Atrial Fib --Eliquis on hold d/t bleeding risk from traumatic intubation Hypothyroidism --resume home med when able HTN --BP slightly hypotensive Updated family member, daughter, Marlena
[2020-03-12 16:21] LABS: Actual Bicarbonate (HCO3a) 16.7 mEq/L (22-28); Base Excess (BEa) -6.9 mEq/L (-2.0 to +3.0); CO2 Tension 27.9 mmHg (35.0-45.0); Calcium, Ionized (arterial) 1.21 mmol/L (1.12-1.30); Carboxyhemoglobin (COHb) 0.1 gm% (0.0-3.0); Hemoglobin (Hb) 11.9 g/dL (12.0-16.0); O2 Tension (PaO2), arterial 62.7 mmHg (> 80.0)
[2020-03-12 16:23] LABS: ALV-art Gradient 258.925 mmHg (0-20)
[2020-03-12] MEDS ORDERED: Rocuronium Bromide 10 MG/ML (10ML VIAL) IVP PRN (17:11)
--- NOTE | 2020-03-12 18:58 | PRG ---
DATE OF SERVICE: 03/12/2020 HISTORY OF PRESENT ILLNESS: Ms. Kearns this morning was seen and evaluated. She was intubated. I was decided to extubate her today around noon. She failed extubation. She had increased distress and required re-intubation. There was concern for heart failure. Her LVEF did appear slightly diminished estimated at 45% to 50%. She did appear to have grade 3 diastolic dysfunction. PAST MEDICAL HISTORY: Carotid disease, chronic atrial fibrillation, BPH, CAD, hypertension, anemia. MEDICATIONS: Include; 1. Eliquis. 2. Metformin. 3. Folate. 4. Aspirin. 5. Ramipril. 6. Carvedilol. 7. Venlafaxine. 8. Atorvastatin. 9. Levothyroxine. 10. Cilostazol. 11. Clopidogrel. 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 SOCIAL HISTORY: Positive alcohol use. Positive tobacco use. REVIEW OF SYSTEMS: Unobtainable. She is currently intubated, sedated. PHYSICAL EXAMINATION: Vital Signs: Blood pressure 137/80, pulse 80, respirations 20. General: She is currently intubated, sedated. Head, Eyes, Ears, Nose and Throat: Sclerae without icterus. Mouth: Moist mucous membranes, normal palate. Neck: No jugular venous distention. Carotid upstroke is brisk. No bruits bilaterally. Lungs: Clear to auscultation. Heart: Regular rate and rhythm, normal S1 and S2. Abdomen: Soft, nontender, nondistended. Extremities: No edema. PERTINENT LABORATORY DATA: Hemoglobin 9.4, hematocrit 28.1. Peak troponin 0.136. DIAGNOSTIC STUDIES: EKG, sinus rhythm with ST-T wave changes suggesting ischemia. IMPRESSION: 1. Respiratory failure. 2. Abnormal EKG. 3. Diastolic dysfunction. 4. History of atrial fibrillation. 5. PAD. RECOMMENDATIONS: At this point, continue supportive care. She did require re-intubation. Based on her EKG, I would recommend proceeding with coronary angiography when she is more stable. Her troponins have been negative. Her BNP was not markedly elevated at 328. Close observation recommended. Job ID: [id number]
[2020-03-12] MEDS: Venlafaxine HCl XR 150 MG CAP PO SCH (20:33)
[2020-03-13] MEDS: methylPREDNISolone Sod Succ 40 MG VIAL IVP SCH ×3 (01:56→17:53)
[2020-03-13] MEDS: Propofol 1,000 MG/100 ML VIAL IV PRN ×3 (01:56→19:23)
[2020-03-13] MEDS: Budesonide 0.25 MG/2 ML NEB INH SCH ×6 (02:04→22:33)
[2020-03-13] MEDS: Lorazepam 2 MG/ML VIAL SLOW IVP PRN ×2 (02:38→20:25)
[2020-03-13 05:06] LABS: #Lymphocytes 0.5 thou/uL (1.20-3.40); #Monocytes 0.4 thou/uL (0.11-0.59); #Neutrophils 4.3 thou/uL (1.40-6.50); %Eosinophils 0.1 % (0.0-10.0); %Lymphocytes 9.3 % (21.0-51.0); %Monocytes 7.5 % (0.0-10.0); %Neutrophils 83.1 % (42.0-75.0); Mean Corpuscular HGB CONC 32.8 g/dL (32.0-36.0); Mean Corpuscular Hemoglobin 31.9 pg (27.0-31.0); Mean Corpuscular Volume 97.2 fL (78.0-98.0); Mean Platelet Volume 10.2 fL (7.4-10.4); Platelet Count 125 thou/uL (130-400); RBC Distribution Width 14.8 % (11.5-14.5); Red Blood Cell (RBC) Count 2.82 mill/uL (4.20-5.40); White Blood Cell (WBC) Count 5.1 thou/uL (4.8-10.8)
[2020-03-13 05:25] LABS: Anion Gap 11 mmol/L (10-20); BUN (Urea Nitrogen) 15 mg/dL (9.8-20.1); Calc. Creatinine Clearance 77 mL/min (70-130); Calcium 8.2 mg/dL (7.8-10.44); Carbon Dioxide 21 mmol/L (23-31); Chloride 110 mmol/L (98-107); Estimated GFR-MDRD 53; Glucose 137 mg/dL (80-115); Potassium 3.4 mmol/L (3.5-5.1); Sodium 139 mmol/L (136-145)
[2020-03-13 05:32] LABS: Troponin I 0.141 ng/mL (< 0.028)
[2020-03-13] MEDS: Levothyroxine Sodium 112 MCG TAB PO SCH (06:00)
[2020-03-13] MEDS: Levothyroxine Sodium 25 MCG TAB PO SCH (06:00)
[2020-03-13] MEDS: Sodium Chloride 0.9% 1,000 ML IV SCH (06:52)
[2020-03-13 07:40] LABS: Actual Bicarbonate (HCO3a) 18.9 mEq/L (22-28); Base Excess (BEa) -4.4 mEq/L (-2.0 to +3.0); CO2 Tension 28.6 mmHg (35.0-45.0); Calcium, Ionized (arterial) 1.18 mmol/L (1.12-1.30); Carboxyhemoglobin (COHb) 0.3 gm% (0.0-3.0); Hemoglobin (Hb) 9.6 g/dL (12.0-16.0); O2 Tension (PaO2), arterial 107.6 mmHg (> 80.0); Potassium - ABG Lab 3.42 mmol/L (3.70-5.30); pH, Arterial 7.44 (7.35-7.45)
--- NOTE | 2020-03-13 08:17 | RAD ---
Portable frontal chest radiograph: 03/13/2020 COMPARISON: 03/12/2020 HISTORY: Ventilated patient FINDINGS: There is a stable endotracheal tube. Stable left vascular catheter present. The cardiac harish houette is prominent. There is pulmonary vascular congestion with perihilar and bibasilar airspace disease. Blunted both costophrenic angle suggests bilateral pleural effusions, left greater than righ t. No significant interval change when compared to the 03/12/2020 exam per IMPRESSION: Stable appearance of the chest as detailed above. Findings suggest pulmonary edema and/or multi lobar infectious pneumonitis/aspiration.
--- NOTE | 2020-03-13 08:55 | PRG ---
DATE OF SERVICE: 03/13/2020 SUBJECTIVE: Kusum Kearns remains intubated in the vent, sedated. She remains encephalopathic. OBJECTIVE: VITAL SIGNS: Temperature of 98, pulse 72, blood pressure 106/50, respiratory rate 18, and sats 96%. CHEST: Rhonchi and crackles. No wheezing. CARDIAC: Normal S1, S2. No gallops. ABDOMEN: No masses. LABORATORY DATA: White count is 5, H and H are 9 and 27, platelet count . X-ray shows cardiomegaly, cephalization. Lytes are otherwise normal. IMPRESSION: Respiratory failure, diastolic dysfunction, presumed angioedema, history of hypertension, tobacco abuse, hypothyroidism. PLAN: She is not weanable at this stage. We have to put a tube down in the right nostril. Tomorrow, if she is not weanable, I am going to probably switch her over to bronchoscope. Pulmonary is going to follow. One-half hour of critical care time. Job ID: [id number]
[2020-03-13] MEDS: Famotidine/PF 20 mg/2ml Vial SLOW IVP SCH ×2 (09:42→19:52)
[2020-03-13] MEDS: Cefepime 1 GM in Sodium Chloride 0.9% 100 ML IVPB SCH ×2 (09:42→19:51)
[2020-03-13] MEDS: fentaNYL Citrate/PF 2,000 MCG in Sodium Chloride 0.9% 60 ML IV SCH (11:19)
[2020-03-13] MEDS: Rocuronium Bromide 50 MG/5 ML VIAL IVP PRN ×2 (13:06→21:03)
--- NOTE | 2020-03-13 14:30 | PRG ---
DATE OF SERVICE: 03/13/2020 SUBJECTIVE: Ms. Kearns is currently sedated. She is intubated. She is back in sinus rhythm. Cardizem has been discontinued. She continues to be on pressor support. OBJECTIVE: VITAL SIGNS: Blood pressure pulse 63, FiO2 40. LUNGS: Crackles noted bilaterally. HEART: Regular rate and rhythm. ABDOMEN: Soft, nontender, nondistended. EXTREMITIES: No edema. IMAGING: Chest x-ray; pulmonary edema versus multilobar pneumonitis versus aspiration. LABORATORY DATA: Hemoglobin 9.0, hematocrit 27.4. IMPRESSION: 1. Respiratory failure. 2. Diastolic dysfunction. 3. Ongoing tobacco use. 4. Angioedema. RECOMMENDATIONS: Ms. Kearns per Dr. Tony Mueller is not weanable. We will continue respiratory support. Heart rate and blood pressure appears stable and continue CV support as well. Her CK troponins were negative despite a recent respiratory insult. Continue to monitor closely. Job ID: [id number]
[2020-03-13] MEDS ORDERED: Dextrose 50% Abboject 50 ML SYRINGE SLOW IVP PRN (14:47)
[2020-03-13] MEDS ORDERED: Dextrose 5% in Water 1,000 ML IV PRN (14:47)
[2020-03-13] MEDS ORDERED: Insulin Regular 300 UNITS/3 ML VIAL SC PRN (14:47)
--- NOTE | 2020-03-13 14:48 | PDOC.HOSPP ---
- Subjective Subjective: Pt remains on vent support. EF wnl. Cardiology is following - Objective Vital Signs & Weight: Vital Signs (12 hours) Temp Pulse Resp BP Pulse Ox 03/13/20 14:41 60 124/58 L 03/13/20 14:40 60 10 L 97 03/13/20 14:39 60 10 L 97 03/13/20 14:00 10 L 03/13/20 12:00 97.7 F 03/13/20 10:29 62 108/51 L 03/13/20 10:28 65 10 L 96 03/13/20 10:27 65 10 L 96 03/13/20 08:00 97.9 F 03/13/20 07:20 72 109/54 L 98 03/13/20 07:16 61 16 98 03/13/20 06:00 16 03/13/20 04:00 98.8 F 16 Weight Admit Weight 198 lb 13.711 oz Weight 210 lb 5.136 oz Most Recent Monitor Data Heart Rate from ECG 63 NIBP 124/57 NIBP BP-Mean 79 Respiration from ECG 9 SpO2 97 I&O: 03/12/20 03/13/20 03/14/20 06:59 06:59 06:59 Intake Total 4549.7 2030.6 Output Total 2235 2601 195 Balance 2314.7 -570.4 -195 Result Diagrams: 03/13/20 04:52 03/13/20 04:52 Radiology Reviewed by me: Yes EKG Reviewed by me: Yes Hospitalist ROS - Medication Medications: Active Medications Generic Name Dose Route Start Last Admin Trade Name Freq PRN Reason Stop Dose Admin Albuterol/Ipratropium 3 ml 03/11/20 10:30 03/13/20 14:39 Ipratropium/Albuterol Sulfate 3 Ml Neb NEB 3 ml [id number] CASSIUS Administration Budesonide 0.25 mg 03/12/20 10:30 03/13/20 14:40 Budesonide 0.25 Mg/2 Ml Neb INH 0.25 mg [id number] CASSIUS Administration Famotidine 20 mg 03/11/20 09:00 03/13/20 09:42 Famotidine/Pf 20 Mg/2ml Vial SLOW IVP 20 mg BID CASSIUS Administration Norepinephrine Bitartrate 250 mls @ 0 mls/hr 03/11/20 02:00 03/12/20 15:01 Levophed IVPB 250 mls INF CASSIUS Administration Protocol Titrate Cefepime HCl 1 gm/ Sodium 100 mls @ 200 mls/hr 03/11/20 09:00 03/13/20 09:42 Chloride IVPB 100 mls Q12HR CASSIUS Administration Diltiazem HCl 125 mg/ Sodium 125 mls @ 10 mls/hr 03/12/20 09:45 03/12/20 10:36 Chloride IVPB 125 mls INF CASSIUS Administration Protocol 10 MG/HR Fentanyl Citrate 2,000 mcg/ 100 mls @ 0 mls/hr 03/12/20 10:30 03/13/20 11:19 Sodium Chloride IV 04/11/20 10:30 100 mls INF CASSIUS Administration Protocol Per Protocol Sodium Chloride 1,000 mls @ 50 mls/hr 03/12/20 14:45 03/13/20 06:52 Normal Saline 0.9% IV 1,000 mls .Q20H CASSIUS Administration Levothyroxine Sodium 112 mcg 03/12/20 06:00 03/13/20 06:00 Levothyroxine Sodium 112 Mcg Tab PO Not Given 0600 CASSIUS Levothyroxine Sodium 25 mcg 03/12/20 06:00 03/13/20 06:00 Levothyroxine Sodium 25 Mcg Tab PO Not Given 0600 CASSIUS Lorazepam 2 mg 03/12/20 10:30 03/13/20 02:38 Lorazepam 2 Mg/Ml Vial SLOW IVP 04/11/20 10:30 2 mg Q1H PRN Administration Breakthrough agitation Methylprednisolone Sodium Succinate 40 mg 03/11/20 10:00 03/13/20 09:42 Methylprednisolone Sod Succ 40 Mg Vial IVP 40 mg 0200,1000,1800 CASSIUS Administration Propofol 1,000 mg 03/12/20 10:30 03/13/20 09:42 Propofol 1,000 Mg/100 Ml Vial IV 04/11/20 10:30 1,000 mg INF PRN Administration TO ACHIEVE GOAL RASS Protocol Sodium Chloride 10 ml 03/11/20 21:00 03/13/20 09:42 Flush - Normal Saline 10 Ml Syringe IVF 10 ml Q12HR CASSIUS Administration Venlafaxine HCl 150 mg 03/11/20 21:00 03/12/20 20:33 Venlafaxine Hcl Xr 150 Mg Cap PO Not Given QPM CASSIUS - Exam General - other findings: pt is sedated and intubated Eye: PERRL ENT: normocephalic atraumatic Neck: supple Heart: RRR Respiratory: CTAB, no wheezes Gastrointestinal: soft Extremities: no cyanosis Skin: normal turgor Neurological - other findings: pt is sedated and intubated Psychiatric: normal affect Hosp A/P - Plan Patient is a 69 years old female who has significant past medical history of atrial fib on Eliquis, hypertension, who was transferred from [place] secondary to acute hypoxic respiratory failure due to angioedema. Pt was intubated in the ED prior to transfer. Acute hypoxic respiratory failure -secondary to angioedema/CHF --pt remains intubated --Status post bronchoscopy, showed atelectasis on 03/11/20 --cont ventilator support as per pulmonoology --cont empiric IV abx, steroids, nebs treatment CHF exac, probably acute on chronic, diastolic --cont IV diuresis, EF 45-50% --cardiology is following Angioedema --d/t ACEi, add to allergy list Atrial Fib --Eliquis on hold d/t bleeding risk from traumatic intubation Hypothyroidism --resume home med when able HTN --BP slightly hypotensive DM 2 --Metformin on hold. Add ISS
--- NOTE | 2020-03-13 17:27 | EKG ---
Test Reason : Blood Pressure : / mmHG Vent. Rate : 072 BPM Atrial Rate : 072 BPM P-R Int : 138 ms QRS Dur : 080 ms QT Int : 474 ms P-R-T Axes : 070 073 152 degrees QTc Int : 519 ms Normal sinus rhythm Anterolateral ischemia Prolonged QT Abnormal ECG When compared with ECG of 10-MAR-2020 17:23, (Unconfirmed) Premature supraventricular complexes are no longer Present QT has lengthened Confirmed by DR. Kendell JANE ([id number]) on 03/13/2020 5:27:19 PM Referred By: Confirmed By:DR. Kendell JANE
[2020-03-13] MEDS ORDERED: Electrolyte Replacement Protocol FS SCH (17:28)
[2020-03-13] MEDS ORDERED: Furosemide 40 MG/4 ML VIAL SLOW IVP SCH (17:30)
[2020-03-13] MEDS ORDERED: Potassium Chloride 40 MEQ in Premix Bag 1 BAG IVPB SCH (17:45)
[2020-03-13] MEDS ORDERED: Albumin 25% 25 GM/100 ML BOT IVPB SCH (17:45)
[2020-03-13] MEDS: Venlafaxine HCl XR 150 MG CAP PO SCH (19:52)
[2020-03-13] MEDS ORDERED: Rocuronium Bromide 50 MG/5 ML VIAL ONE ×3 (20:51→20:53)
[2020-03-14] MEDS: Budesonide 0.25 MG/2 ML NEB INH SCH ×6 (01:46→22:24)
[2020-03-14] MEDS: methylPREDNISolone Sod Succ 40 MG VIAL IVP SCH ×3 (02:05→18:45)
[2020-03-14] MEDS: Rocuronium Bromide 50 MG/5 ML VIAL IVP PRN ×2 (02:07→06:40)
[2020-03-14] MEDS: Propofol 1,000 MG/100 ML VIAL IV PRN ×2 (04:52→15:53)
[2020-03-14 05:04] LABS: Anion Gap 13 mmol/L (10-20); BUN (Urea Nitrogen) 18 mg/dL (9.8-20.1); Calc. Creatinine Clearance 83 mL/min (70-130); Calcium 8.7 mg/dL (7.8-10.44); Carbon Dioxide 22 mmol/L (23-31); Chloride 109 mmol/L (98-107); Estimated GFR-MDRD 60; Glucose 125 mg/dL (80-115); Potassium 3.8 mmol/L (3.5-5.1); Sodium 140 mmol/L (136-145)
[2020-03-14 05:05] LABS: #Lymphocytes 0.6 thou/uL (1.20-3.40); #Monocytes 0.6 thou/uL (0.11-0.59); #Neutrophils 5.7 thou/uL (1.40-6.50); %Basophils 0.1 % (0.0-1.0); %Eosinophils 0.2 % (0.0-10.0); %Lymphocytes 8.5 % (21.0-51.0); %Monocytes 8.2 % (0.0-10.0); Hemoglobin 9.4 g/dL (12.0-16.0); Mean Corpuscular HGB CONC 33.7 g/dL (32.0-36.0); Mean Corpuscular Hemoglobin 32.8 pg (27.0-31.0); Mean Corpuscular Volume 97.6 fL (78.0-98.0); Mean Platelet Volume 10.1 fL (7.4-10.4); Platelet Count 119 thou/uL (130-400); RBC Distribution Width 14.9 % (11.5-14.5); Red Blood Cell (RBC) Count 2.86 mill/uL (4.20-5.40); White Blood Cell (WBC) Count 6.8 thou/uL (4.8-10.8)
[2020-03-14] MEDS: Levothyroxine Sodium 112 MCG TAB PO SCH (05:53)
[2020-03-14] MEDS: Furosemide 40 MG/4 ML VIAL SLOW IVP SCH ×2 (05:53→14:04)
[2020-03-14] MEDS: Levothyroxine Sodium 25 MCG TAB PO SCH (05:54)
[2020-03-14] MEDS: fentaNYL Citrate/PF 2,000 MCG in Sodium Chloride 0.9% 60 ML IV SCH (07:09)
[2020-03-14 07:13] LABS: Actual Bicarbonate (HCO3a) 24.5 mEq/L (22-28); Base Excess (BEa) -0.9 mEq/L (-2.0 to +3.0); CO2 Tension 43.9 mmHg (35.0-45.0); Calcium, Ionized (arterial) 1.19 mmol/L (1.12-1.30); Carboxyhemoglobin (COHb) 0.2 gm% (0.0-3.0); Hemoglobin (Hb) 10.7 g/dL (12.0-16.0); O2 Tension (PaO2), arterial 74.1 mmHg (> 80.0); Potassium - ABG Lab 3.72 mmol/L (3.70-5.30); pH, Arterial 7.37 (7.35-7.45)
[2020-03-14 07:14] LABS: ALV-art Gradient 156.225 mmHg (0-20); Puncture Site RRA
--- NOTE | 2020-03-14 07:43 | RAD ---
Portable frontal chest radiograph: 03/14/2020 COMPARISON: 03/13/2020 HISTORY: Ventilated patient, respiratory distress FINDINGS: Stable endotracheal tube and enlargement of the cardiac silhouette. Pulmonary vascular neida estion with perihilar interstitial and alveolar opacity, slightly worsened when compared to the prior study. There is obscuration of bilateral hemidiaphragms and blunting of bilateral costophrenic angles with d ense opacity in the left base and hazy airspace disease within the right base. Findings are similar when compared to prior imaging. IMPRESSION: Findings most consistent with slightly worsened interstitial and alveolar opacity. Superi mposed multi lobar infectious pneumonitis/aspiration is a possibility. Continued follow-up to document resolution advised.
--- NOTE | 2020-03-14 09:19 | PRG ---
DATE OF SERVICE: 03/14/2020 SUBJECTIVE: Kusum Kearns remains intubated in the vent, sedated, OBJECTIVE: VITAL SIGNS: Temperature is 98, blood pressure 183/91, respiratory rate 18, sats 95%. CHEST: Bilateral rhonchi. CARDIAC: Normal S1, S2. No gallops. ABDOMEN: No masses. LABORATORY DATA: White count 6000, H and H of 9 and 29, platelet count is 119, decreased. PO2 is 74, pCO2 . Lytes are normal. Glucose 125. IMPRESSION AND PLAN: 1. Respiratory failure. 2. Angioedema. 3. Probably some diastolic dysfunction. 4. Encephalopathy. She is not weanable at this stage. I think the angioedema has resolved. I am going to reintubate her through the mouth. She needs an NG tube. Nutrition. Supportive care. Prognosis remains guarded. One half-hour of critical care time. Job ID: [id number]
[2020-03-14] MEDS: Cefepime 1 GM in Sodium Chloride 0.9% 100 ML IVPB SCH ×2 (10:13→19:34)
[2020-03-14] MEDS: Famotidine/PF 20 mg/2ml Vial SLOW IVP SCH ×2 (10:15→19:35)
[2020-03-14] MEDS: Sodium Chloride 0.9% 1,000 ML IV SCH (10:16)
--- NOTE | 2020-03-14 11:30 | PRG ---
DATE OF SERVICE: 03/14/2020 SUBJECTIVE: This is a 69-year-old female, who was intubated nasally for respiratory failure. She had angioedema. This morning, she felt that we will reassess her oral cavity to see whether we could switch it from nasal to oral. The bronchoscope was passed in the back of the throat. Copious amounts of purulent secretions were seen. This was suctioned several times. Multiple times to visualize the back of the throat were unsuccessful. Tongue appeared to be large at the time when she was intubated. The vocal cords appeared to be unremarkable, but the back of throat was clearly unable to visualize. We are going to leave her intubated. We passed an NG tube. We are going to try and consider getting ENT to visualize the back of the throat at some time. We will keep her sedated, try and avoid paralytics if possible. Job ID: [id number]
--- NOTE | 2020-03-14 12:25 | RAD ---
Abdomen one view HISTORY: Nasogastric tube placement. FINDINGS: Gas and stool over the colon and rectum. Small bowel gas pattern is nonspecific. Pelvis is incompletely imaged. Distal end of a nasogastric tube overlies the gastric fundus. Proximal port at the expected location of the GE junction. IMPRESSION : Advancing the nasogastric tube 10 cm would likely result in better position.
--- NOTE | 2020-03-14 15:46 | PDOC.HOSPP ---
- Subjective Subjective: Patient was seen examined at bedside. Discussed with Dr. Mueller. Appreciate his help. - Objective Vital Signs & Weight: Vital Signs (12 hours) Temp Pulse Pulse Pulse Resp BP BP 03/14/20 14:18 71 143/74 H 03/14/20 14:00 99.1 F 10 L 03/14/20 13:13 90 160/87 H 03/14/20 13:00 98.7 F 03/14/20 12:05 76 68 171/108 H 03/14/20 12:00 10 L 03/14/20 11:15 71 172/80 H 03/14/20 10:00 12 03/14/20 08:00 98.9 F 10 L 03/14/20 07:28 86 183/91 H 03/14/20 06:00 12 03/14/20 05:00 98.7 F 03/14/20 04:00 15 BP Pulse Ox Pulse Ox Pulse Ox 03/14/20 14:18 03/14/20 14:00 03/14/20 13:13 03/14/20 13:00 03/14/20 12:05 135/90 92 L 87 L 03/14/20 12:00 03/14/20 11:15 03/14/20 10:00 03/14/20 08:00 93 L 03/14/20 07:28 03/14/20 06:00 03/14/20 05:00 03/14/20 04:00 97 Weight Admit Weight 198 lb 13.711 oz Weight 201 lb 0.985 oz Most Recent Monitor Data Heart Rate from ECG 69 NIBP 143/74 NIBP BP-Mean 97 Respiration from ECG 10 SpO2 94 I&O: 03/13/20 03/14/20 03/15/20 06:59 06:59 06:59 Intake Total 2030.6 1685.8 Output Total 9661 1471 9576 Balance -570.4 -1244.2 -2346 Result Diagrams: 03/14/20 04:00 03/14/20 04:00 Additional Labs: Accuchecks 03/13/20 21:14 POC Glucose 141 H Radiology Reviewed by me: Yes EKG Reviewed by me: Yes Hospitalist ROS - Medication Medications: Active Medications Generic Name Dose Route Start Last Admin Trade Name Freq PRN Reason Stop Dose Admin Albuterol/Ipratropium 3 ml 03/11/20 10:30 03/14/20 14:17 Ipratropium/Albuterol Sulfate 3 Ml Neb NEB 3 ml [id number] CASSIUS Administration Budesonide 0.25 mg 03/12/20 10:30 03/14/20 14:17 Budesonide 0.25 Mg/2 Ml Neb INH 0.25 mg [id number] CASSIUS Administration Famotidine 20 mg 03/11/20 09:00 03/14/20 10:15 Famotidine/Pf 20 Mg/2ml Vial SLOW IVP 20 mg BID CASSIUS Administration Furosemide 40 mg 03/14/20 06:00 03/14/20 14:04 Furosemide 40 Mg/4 Ml Vial SLOW IVP 40 mg 0600,1400 CASSIUS Administration Norepinephrine Bitartrate 250 mls @ 0 mls/hr 03/11/20 02:00 03/12/20 15:01 Levophed IVPB 250 mls INF CASSIUS Administration Protocol Titrate Cefepime HCl 1 gm/ Sodium 100 mls @ 200 mls/hr 03/11/20 09:00 03/14/20 10:13 Chloride IVPB 100 mls Q12HR CASSIUS Administration Diltiazem HCl 125 mg/ Sodium 125 mls @ 10 mls/hr 03/12/20 09:45 03/12/20 10:36 Chloride IVPB 125 mls INF CASSIUS Administration Protocol 10 MG/HR Fentanyl Citrate 2,000 mcg/ 100 mls @ 0 mls/hr 03/12/20 10:30 03/14/20 07:09 Sodium Chloride IV 04/11/20 10:30 100 mls INF CASSIUS Administration Protocol Per Protocol Sodium Chloride 1,000 mls @ 50 mls/hr 03/12/20 14:45 03/14/20 10:16 Normal Saline 0.9% IV Not Given .Q20H CASSIUS Levothyroxine Sodium 112 mcg 03/12/20 06:00 03/14/20 05:53 Levothyroxine Sodium 112 Mcg Tab PO Not Given 0600 CASSIUS Levothyroxine Sodium 25 mcg 03/12/20 06:00 03/14/20 05:54 Levothyroxine Sodium 25 Mcg Tab PO Not Given 0600 CASSIUS Lorazepam 2 mg 03/12/20 10:30 03/13/20 20:25 Lorazepam 2 Mg/Ml Vial SLOW IVP 04/11/20 10:30 2 mg Q1H PRN Administration Breakthrough agitation Methylprednisolone Sodium Succinate 40 mg 03/11/20 10:00 03/14/20 10:15 Methylprednisolone Sod Succ 40 Mg Vial IVP 40 mg 0200,1000,1800 CASSIUS Administration Propofol 1,000 mg 03/12/20 10:30 03/14/20 04:52 Propofol 1,000 Mg/100 Ml Vial IV 04/11/20 10:30 1,000 mg INF PRN Administration TO ACHIEVE GOAL RASS Protocol Sodium Chloride 10 ml 03/11/20 21:00 03/14/20 10:16 Flush - Normal Saline 10 Ml Syringe IVF 10 ml Q12HR CASSIUS Administration Venlafaxine HCl 150 mg 03/11/20 21:00 03/13/20 19:52 Venlafaxine Hcl Xr 150 Mg Cap PO Not Given QPM CASSIUS - Exam General - other findings: Patient remains intubated and sedated Eye: PERRL ENT: normocephalic atraumatic Neck: supple Heart: RRR Respiratory: CTAB Gastrointestinal: soft Extremities: no cyanosis Skin: normal turgor Neurological - other findings: Sedated Musculoskeletal: normal tone Hosp A/P - Plan Patient is a 69 years old female who has significant past medical history of atrial fib on Eliquis, hypertension, who was transferred from [place] secondary to acute hypoxic respiratory failure due to angioedema. Pt was intubated in the ED prior to transfer. Acute hypoxic respiratory failure - likely multifactorial including an gioedema/CHF/pneumonitis/aspiration --pt remains intubated --Status post bronchoscopy, showed atelectasis on 03/11/20 --cont ventilator support as per pulmonoology --cont empiric IV abx, steroids, nebs treatment CHF exac, probably acute on chronic, diastolic --cont IV diuresis, EF 45-50% --cardiology is following --cont IV diuretic Angioedema --d/t ACEi, add to allergy list Atrial Fib --Eliquis on hold d/t bleeding risk from traumatic intubation Hypothyroidism --resume home med when able HTN --BP slightly hypotensive DM 2 --Metformin on hold. Add ISS
--- NOTE | 2020-03-14 15:54 | PRG ---
DATE OF SERVICE: 03/14/2020 SUBJECTIVE: Ms. Kearns's status is unchanged. She is intubated, sedated. She is off pressors. Blood pressure appears stable. OBJECTIVE: VITAL SIGNS: Blood pressure 143/71, pulse 71, temperature afebrile. LUNGS: Rhonchi, rales bilaterally. HEART: Regular rate and rhythm with extrasystolic beat. ABDOMEN: Soft, nontender, nondistended. EXTREMITIES: No edema. LABORATORY DATA: Hemoglobin 9.4, hematocrit 27.9, platelet count 119. Creatinine 0.93. Peak troponin 0.141. BNP of 328. IMPRESSION: 1. Respiratory failure. 2. Mildly elevated troponin. 3. Tobacco abuse. 4. Diastolic dysfunction. RECOMMENDATIONS: 1. Continue current support. 2. On antibiotic therapy. 3. Agree with low-dose Lasix IV. She does have a component of diastolic dysfunction in addition to a mild cardiomyopathy. I am unsure whether this is the primary or secondary etiology to her current demise. Her BNP is mildly elevated with an LVEF of 45% to 50%. Testing for COVID is being repeated. Job ID: [id number]
[2020-03-14] MEDS: Venlafaxine HCl XR 150 MG CAP PO SCH (19:35)
[2020-03-15] MEDS: methylPREDNISolone Sod Succ 40 MG VIAL IVP SCH ×3 (01:04→17:21)
[2020-03-15] MEDS: Budesonide 0.25 MG/2 ML NEB INH SCH ×6 (02:29→22:03)
[2020-03-15] MEDS: fentaNYL Citrate/PF 2,000 MCG in Sodium Chloride 0.9% 60 ML IV SCH (02:39)
[2020-03-15] MEDS: Sodium Chloride 0.9% 1,000 ML IV SCH (03:05)
[2020-03-15] MEDS: Propofol 1,000 MG/100 ML VIAL IV PRN (03:09)
[2020-03-15 04:44] LABS: #Lymphocytes 0.7 thou/uL (1.20-3.40); #Monocytes 0.5 thou/uL (0.11-0.59); #Neutrophils 7.5 thou/uL (1.40-6.50); %Basophils 0.1 % (0.0-1.0); %Eosinophils 0.4 % (0.0-10.0); %Lymphocytes 7.9 % (21.0-51.0); %Monocytes 6.2 % (0.0-10.0); %Neutrophils 85.4 % (42.0-75.0); Hemoglobin 10.3 g/dL (12.0-16.0); Mean Corpuscular HGB CONC 32.9 g/dL (32.0-36.0); Mean Corpuscular Volume 97.5 fL (78.0-98.0); Platelet Count 153 thou/uL (130-400); RBC Distribution Width 14.7 % (11.5-14.5); Red Blood Cell (RBC) Count 3.22 mill/uL (4.20-5.40); White Blood Cell (WBC) Count 8.7 thou/uL (4.8-10.8)
[2020-03-15 04:52] LABS: Anion Gap 14 mmol/L (10-20); BUN (Urea Nitrogen) 26 mg/dL (9.8-20.1); Calc. Creatinine Clearance 76 mL/min (70-130); Calcium 9.1 mg/dL (7.8-10.44); Carbon Dioxide 27 mmol/L (23-31); Chloride 103 mmol/L (98-107); Estimated GFR-MDRD 56; Glucose 119 mg/dL (80-115); Potassium 3.7 mmol/L (3.5-5.1); Sodium 140 mmol/L (136-145)
[2020-03-15] MEDS: Levothyroxine Sodium 112 MCG TAB PO SCH (04:54)
[2020-03-15] MEDS: Furosemide 40 MG/4 ML VIAL SLOW IVP SCH ×2 (04:55→13:59)
[2020-03-15] MEDS: Levothyroxine Sodium 25 MCG TAB PO SCH (04:55)
[2020-03-15 07:02] LABS: Base Excess (BEa) 4.1 mEq/L (-2.0 to +3.0); Calcium, Ionized (arterial) 1.17 mmol/L (1.12-1.30); Carboxyhemoglobin (COHb) 0.3 gm% (0.0-3.0); Hemoglobin (Hb) 11.4 g/dL (12.0-16.0); O2 Tension (PaO2), arterial 70.9 mmHg (> 80.0); Potassium - ABG Lab 3.58 mmol/L (3.70-5.30); pH, Arterial 7.43 (7.35-7.45)
[2020-03-15 07:04] LABS: Puncture Site LRA
--- NOTE | 2020-03-15 08:32 | PRG ---
DATE OF SERVICE: 03/15/2020 SUBJECTIVE: Ms. Kearns's status is unchanged. She remains intubated. She is off pressors. Blood pressure and heart rate appear stable. OBJECTIVE: VITAL SIGNS: Blood pressure 160/70, pulse 70, and temperature afebrile. LUNGS: Clear to auscultation with mild rhonchi and rales bilaterally. HEART: Regular rate and rhythm. ABDOMEN: Soft, nontender, and nondistended. EXTREMITIES: No edema. PERTINENT LABORATORY DATA: Hemoglobin 10.3. Creatinine 0.99. Troponin 0.141. IMPRESSION: 1. Respiratory failure. 2. Elevated troponin. 3. Abnormal EKG. 4. PAD. RECOMMENDATIONS: 1. Continue respiratory support per Dr. Tony Mueller. 2. Continue Lasix in addition to antibiotic therapy. We will continue to follow. Job ID: [id number]
--- NOTE | 2020-03-15 09:26 | RAD ---
CHEST 1 VIEW: HISTORY: congestive heart failure. COMPARISON: 03/14/2020. FINDINGS: Life support tubes in place including NG tube, endotracheal tube, and left subclavian catheters. Car diomegaly with bilateral vascular congestion and bilateral pleural effusions, larger on the left side . The amount of parenchymal changes has improved slightly. IMPRESSION: Slightly improved findings of congestive heart failure. Continue short-term followup. POS: RRE
[2020-03-15] MEDS: Famotidine/PF 20 mg/2ml Vial SLOW IVP SCH ×2 (09:34→21:52)
[2020-03-15] MEDS: Cefepime 1 GM in Sodium Chloride 0.9% 100 ML IVPB SCH ×2 (09:34→21:52)
--- NOTE | 2020-03-15 10:20 | PRG ---
DATE OF SERVICE: 03/15/2020 SUBJECTIVE: Kusum Kearns remains intubated in the vent, sedated. We had ENT see the patient yesterday, he thought the back of the throat was normal. OBJECTIVE: VITAL SIGNS: Pulse 70, blood pressure 164/73, saturations 99%, respiratory rate 18. Afebrile. I's and O's; 1685 in, 2930 out. CHEST: Extensive rhonchi, crackles. CARDIAC: Normal S1, S2. No gallop. ABDOMEN: Soft. LABORATORY STUDIES: Lytes are normal. White count is only 8000. Blood gases; pO2 is 70, pCO2 is 45, pH 7.43. IMPRESSION: 1. Respiratory failure, felt to be angioedema. 2. Diastolic dysfunction. 3. Possibly aspiration pneumonia. 4. Encephalopathy. PLAN: I am going to hold sedation again to see if we can wean and extubate her. She remains encephalopathic. She is not weanable. She failed the 1st time when I extubated her. She has a tube in the nose. If we are unable to extubate her, we may have to consider trach in the next week. Otherwise, continue all medicines including antibiotics, steroids, neb treatment, and diuretics. TIME SPENT: One-half hour of critical care time. Job ID: [id number]
[2020-03-15] MEDS: niCARdipine 25 MG in Sodium Chloride 0.9% 250 ML 240 ML IVPB SCH ×3 (10:27→14:48)
[2020-03-15] MEDS ORDERED: Enoxaparin Sodium 40 MG/0.4 ML SYRINGE SC SCH (11:00)
[2020-03-15 11:18] LABS: Magnesium 2.2 mg/dL (1.6-2.6)
[2020-03-15] MEDS ORDERED: Fentanyl 100 MCG/2 ML VIAL ONE (11:45)
[2020-03-15 12:54] LABS: SARS-CoV-2 MS2 Positive; SARS-CoV-2 N Gene Negative; SARS-CoV-2 S Gene Negative; SARS-CoV-2 by NAA Not Detected (NotDetected); SARS-CoV-2 orf1ab Negative
[2020-03-15] MEDS: niCARdipine 50 MG in Sodium Chloride 0.9% 250 ML 230 ML IVPB SCH (17:13)
[2020-03-15] MEDS: Carvedilol 6.25 MG TAB PO SCH (17:21)
--- NOTE | 2020-03-15 17:44 | PDOC.HOSPP ---
- Subjective Subjective: s/p extubate. pt tolerated it well. feeling better. answered all questions appropriately - Objective Vital Signs & Weight: Vital Signs (12 hours) Temp Pulse Pulse Pulse Resp BP BP 03/15/20 17:21 164/68 H 03/15/20 16:00 98.7 F 03/15/20 14:20 78 18 03/15/20 12:00 98.9 F 85 94 176/85 H 03/15/20 09:48 103 H 22 H 03/15/20 09:37 138 H 204/121 H 03/15/20 09:18 82 18 03/15/20 08:00 11 L 03/15/20 06:36 70 164/73 H 03/15/20 06:32 77 14 03/15/20 06:00 11 L BP Pulse Ox Pulse Ox Pulse Ox 03/15/20 17:21 03/15/20 16:00 03/15/20 14:20 91 L 03/15/20 12:00 192/83 H 92 L 92 L 90 L 03/15/20 09:48 94 L 03/15/20 09:37 03/15/20 09:18 90 L 03/15/20 08:00 100 03/15/20 06:36 03/15/20 06:32 99 03/15/20 06:00 Weight Admit Weight 198 lb 13.711 oz Weight 194 lb 7.163 oz Most Recent Monitor Data Heart Rate from ECG 87 NIBP 157/63 NIBP BP-Mean 94 Respiration from ECG 23 SpO2 88 I&O: 03/14/20 03/15/20 03/16/20 06:59 06:59 06:59 Intake Total 1685.8 1874 Output Total 2930 4966 2760 Balance 1244.2 -3092 -2760 Result Diagrams: 03/15/20 04:00 03/15/20 04:00 Additional Labs: Accuchecks 03/15/20 03/15/20 03/15/20 16:22 11:51 00:17 POC Glucose 132 H 131 H 163 H 03/14/20 18:27 POC Glucose 139 H Radiology Reviewed by me: Yes EKG Reviewed by me: Yes Hospitalist ROS - Medication Medications: Active Medications Generic Name Dose Route Start Last Admin Trade Name Freq PRN Reason Stop Dose Admin Albuterol/Ipratropium 3 ml 03/11/20 10:30 03/15/20 14:20 Ipratropium/Albuterol Sulfate 3 Ml Neb NEB 3 ml [id number] CASSIUS Administration Budesonide 0.25 mg 03/12/20 10:30 03/15/20 14:25 Budesonide 0.25 Mg/2 Ml Neb INH 0.25 mg [id number] CASSIUS Administration Carvedilol 6.25 mg 03/15/20 17:00 03/15/20 17:21 Carvedilol 6.25 Mg Tab PO 6.25 mg [id number] CASSIUS Administration Famotidine 20 mg 03/11/20 09:00 03/15/20 09:34 Famotidine/Pf 20 Mg/2ml Vial SLOW IVP 20 mg BID CASSIUS Administration Furosemide 40 mg 03/14/20 06:00 03/15/20 13:59 Furosemide 40 Mg/4 Ml Vial SLOW IVP 40 mg 0600,1400 CASSIUS Administration Cefepime HCl 1 gm/ Sodium 100 mls @ 200 mls/hr 03/11/20 09:00 03/15/20 09:34 Chloride IVPB 100 mls Q12HR CASSIUS Administration Diltiazem HCl 125 mg/ Sodium 125 mls @ 10 mls/hr 03/12/20 09:45 03/12/20 10:36 Chloride IVPB 125 mls INF CASSIUS Administration Protocol 10 MG/HR Sodium Chloride 1,000 mls @ 50 mls/hr 03/12/20 14:45 03/15/20 03:05 Normal Saline 0.9% IV 1,000 mls .Q20H CASSIUS Administration Nicardipine HCl 50 mg/ Sodium 250 mls @ 0 mls/hr 03/15/20 16:30 03/15/20 17:13 Chloride IVPB 250 mls INF CASSIUS Administration Protocol Titrate Insulin Human Regular 0 units 03/13/20 14:47 03/15/20 01:00 Insulin Regular 300 Units/3 Ml Vial SC 2 unit .MODERATE SLIDING SC PRN Administration Moderate Correctional Scale Levothyroxine Sodium 112 mcg 03/12/20 06:00 03/15/20 04:54 Levothyroxine Sodium 112 Mcg Tab PO 112 mcg 0600 CASSIUS Administration Levothyroxine Sodium 25 mcg 03/12/20 06:00 03/15/20 04:55 Levothyroxine Sodium 25 Mcg Tab PO 25 mcg 0600 CASSIUS Administration Methylprednisolone Sodium Succinate 40 mg 03/11/20 10:00 03/15/20 17:21 Methylprednisolone Sod Succ 40 Mg Vial IVP 40 mg 0200,1000,1800 CASSIUS Administration Sodium Chloride 10 ml 03/11/20 21:00 03/15/20 09:37 Flush - Normal Saline 10 Ml Syringe IVF 10 ml Q12HR CASSIUS Administration Venlafaxine HCl 150 mg 03/11/20 21:00 03/14/20 19:35 Venlafaxine Hcl Xr 150 Mg Cap PO 150 mg QPM CASSIUS Administration - Exam General Appearance: NAD Eye: PERRL ENT: normocephalic atraumatic Neck: supple, JVD Heart: RRR Respiratory: rhonchi Gastrointestinal: soft, non-tender, non-distended Extremities: no cyanosis, no clubbing, no edema Skin: normal turgor, no lesions Neurological: cranial nerve grossly intact Musculoskeletal: normal tone, normal strength Psychiatric: normal affect, normal behavior, A&O x 3 Hosp A/P - Plan Patient is a 69 years old female who has significant past medical history of atrial fib on Eliquis, hypertension, who was transferred from [place] secondary to acute hypoxic respiratory failure due to angioedema. Pt was intubated in the ED prior to transfer. Acute hypoxic respiratory failure - likely multifactorial including angioedema/CHF/pneumonitis/aspiration --s/p successful extubation on 03/15 --Status post bronchoscopy, showed atelectasis on 03/11/20 --cont empiric IV abx, steroids, nebs treatments. Wean O2 as niko --further mgt as per pulmonology --SP eval, resume diet if able CHF exac, probably acute on chronic, diastolic --cont IV diuresis, EF 45-50% --cardiology is following --cont IV diuretics, maintain neg fluid balance Angioedema --d/t ACEi, added to allergy list Atrial Fib --reportedly, pt had traumatic intubation. Consider restart pt on Eliquis once ok with pul Hypothyroidism --resumed home med HTN --resumed home med DM 2 --Metformin on hold. cont ISS for now
[2020-03-15] MEDS: Enoxaparin Sodium 80 MG/0.8 ML SYRINGE SC SCH (21:52)
[2020-03-15] MEDS: Venlafaxine HCl XR 150 MG CAP PO SCH (21:52)
[2020-03-15] MEDS: cloNIDine 0.1 MG TAB PO PRN (22:03)
[2020-03-16] MEDS: niCARdipine 50 MG in Sodium Chloride 0.9% 250 ML 230 ML IVPB SCH ×3 (00:10→12:10)
[2020-03-16] MEDS: Sodium Chloride 0.9% 1,000 ML IV SCH ×2 (00:11→17:54)
[2020-03-16] MEDS: Budesonide 0.25 MG/2 ML NEB INH SCH ×6 (01:47→22:27)
[2020-03-16] MEDS: methylPREDNISolone Sod Succ 40 MG VIAL IVP SCH ×3 (02:01→17:49)
[2020-03-16] MEDS: cloNIDine 0.1 MG TAB PO PRN (02:01)
[2020-03-16 04:40] LABS: #Lymphocytes 0.9 thou/uL (1.20-3.40); #Monocytes 0.7 thou/uL (0.11-0.59); #Neutrophils 7.8 thou/uL (1.40-6.50); %Basophils 0.2 % (0.0-1.0); %Eosinophils 0.3 % (0.0-10.0); %Lymphocytes 9.4 % (21.0-51.0); %Neutrophils 83.1 % (42.0-75.0); Hemoglobin 11.6 g/dL (12.0-16.0); Mean Corpuscular HGB CONC 32.5 g/dL (32.0-36.0); Mean Corpuscular Hemoglobin 31.6 pg (27.0-31.0); Mean Corpuscular Volume 97.2 fL (78.0-98.0); Mean Platelet Volume 9.3 fL (7.4-10.4); Platelet Count 157 thou/uL (130-400); RBC Distribution Width 14.4 % (11.5-14.5); Red Blood Cell (RBC) Count 3.68 mill/uL (4.20-5.40); White Blood Cell (WBC) Count 9.4 thou/uL (4.8-10.8)
[2020-03-16 04:58] LABS: Anion Gap 13 mmol/L (10-20); BUN (Urea Nitrogen) 23 mg/dL (9.8-20.1); Calc. Creatinine Clearance 97 mL/min (70-130); Calcium 8.8 mg/dL (7.8-10.44); Carbon Dioxide 34 mmol/L (23-31); Chloride 97 mmol/L (98-107); Estimated GFR-MDRD 75; Glucose 126 mg/dL (80-115); Potassium 3.1 mmol/L (3.5-5.1); Sodium 141 mmol/L (136-145)
[2020-03-16] MEDS ORDERED: Potassium Chloride 40 MEQ in Premix Bag 1 BAG IVPB SCH (05:30)
[2020-03-16] MEDS: Furosemide 40 MG/4 ML VIAL SLOW IVP SCH ×2 (05:59→15:16)
[2020-03-16] MEDS: Levothyroxine Sodium 112 MCG TAB PO SCH (05:59)
[2020-03-16] MEDS: Levothyroxine Sodium 25 MCG TAB PO SCH (05:59)
[2020-03-16] MEDS: Cefepime 1 GM in Sodium Chloride 0.9% 100 ML IVPB SCH ×2 (08:11→20:00)
[2020-03-16] MEDS: Carvedilol 6.25 MG TAB PO SCH ×2 (08:12→17:39)
[2020-03-16] MEDS: Enoxaparin Sodium 80 MG/0.8 ML SYRINGE SC SCH ×2 (08:12→20:01)
--- NOTE | 2020-03-16 08:28 | RAD ---
PORTABLE CHEST: HISTORY: CCU followup. On ventilator followup. COMPARISON: 03/15/2020. FINDINGS: The ET tube has been removed. NG tube has been removed. Central line is unchanged. There is mild c ardiomegaly and vascular prominence which his stable. The bibasilar infiltrates and/or atelectasis a ppear improved. No significant effusion. IMPRESSION: Mild vascular prominence may represent mild congestion. Overall improvement in the appearance of the chest. POS: AGW
[2020-03-16] MEDS ORDERED: Enoxaparin Sodium 40 MG/0.4 ML SYRINGE SC SCH (09:00)
[2020-03-16] MEDS ORDERED: NIFEdipine XL 90 MG TAB PO SCH ×2 (09:41→09:45)
[2020-03-16] MEDS ORDERED: Carvedilol 6.25 MG TAB PO SCH ×2 (09:41→09:45)
--- NOTE | 2020-03-16 09:53 | PRG ---
DATE OF SERVICE: 03/16/2020 SUBJECTIVE: Ms. Kearns is resting comfortably. She is awake and alert. OBJECTIVE: VITAL SIGNS: Blood pressure remains high at 170 systolic despite intravenous nicardipine and carvedilol. She is also receiving clonidine p.r.n. LUNGS: Clear. CARDIAC: Normal S1, normal S2. ABDOMEN: Soft, nontender. EXTREMITIES: No edema. ASSESSMENT: Hypertension, severe. PLAN: 1. Change to Procardia XL. 2. Increase carvedilol. 3. Hopefully, we can wean nicardipine. Job ID: [id number]
[2020-03-16] MEDS: Famotidine/PF 20 mg/2ml Vial SLOW IVP SCH ×2 (10:14→20:01)
--- NOTE | 2020-03-16 10:32 | EKG ---
Test Reason : Blood Pressure : / mmHG Vent. Rate : 076 BPM Atrial Rate : 076 BPM P-R Int : 138 ms QRS Dur : 068 ms QT Int : 414 ms P-R-T Axes : 065 086 107 degrees QTc Int : 465 ms Sinus rhythm with Premature supraventricular complexes Prolonged QT Abnormal ECG Confirmed by JOVANI ROCA ([id number]), map editor KANDICE LUX ([id number]) on 03/16/2020 10:32:23 AM Referred By: Confirmed By:JOVANI ROCA
--- NOTE | 2020-03-16 15:34 | PDOC.HOSPP ---
- Subjective Encounter Date: 03/16/20 Subjective: The patient appears to be alert and oriented this morning. She was able to take her pills with a sip of water. - Objective Vital Signs & Weight: Vital Signs (12 hours) Temp Pulse Resp BP Pulse Ox 03/16/20 14:47 82 18 92 L 03/16/20 12:00 98.9 F 03/16/20 11:54 94 L 03/16/20 10:29 87 16 96 03/16/20 10:14 87 156/65 H 03/16/20 08:12 156/65 H 03/16/20 08:00 98.5 F 98 03/16/20 07:20 97 03/16/20 07:17 82 17 99 03/16/20 04:00 98.6 F Weight Admit Weight 198 lb 13.711 oz Weight 186 lb 11.704 oz Most Recent Monitor Data Heart Rate from ECG 69 NIBP 135/54 NIBP BP-Mean 81 Respiration from ECG 16 SpO2 97 I&O: 03/15/20 03/16/20 03/17/20 06:59 06:59 06:59 Intake Total 1875 1265 160 Output Total 4966 4410 1285 [facility] -3092 -1685 -1125 Result Diagrams: 03/16/20 04:15 03/16/20 04:15 Additional Labs: Accuchecks 03/16/20 03/16/20 03/15/20 10:52 04:17 22:31 POC Glucose 124 H 132 H 151 H 03/15/20 16:22 POC Glucose 132 H Hospitalist ROS - Medication Medications: Active Medications Generic Name Dose Route Start Last Admin Trade Name Freq PRN Reason Stop Dose Admin Albuterol/Ipratropium 3 ml 03/11/20 10:30 03/16/20 14:47 Ipratropium/Albuterol Sulfate 3 Ml Neb NEB 3 ml [id number] CASSIUS Administration Budesonide 0.25 mg 03/12/20 10:30 03/16/20 14:52 Budesonide 0.25 Mg/2 Ml Neb INH 0.25 mg [id number] CASSIUS Administration Clonidine 0.1 mg 03/15/20 09:57 03/16/20 02:01 Clonidine 0.1 Mg Tab PO 0.1 mg Q4H PRN Administration SBP GREATER THAN 160 Enoxaparin Sodium 80 mg 03/15/20 21:00 03/16/20 08:12 Enoxaparin Sodium 80 Mg/0.8 Ml Syringe SC 80 mg 0900,2100 CASSIUS Administration Famotidine 20 mg 03/11/20 09:00 03/16/20 10:14 Famotidine/Pf 20 Mg/2ml Vial SLOW IVP 20 mg BID CASSIUS Administration Furosemide 40 mg 03/14/20 06:00 03/16/20 15:16 Furosemide 40 Mg/4 Ml Vial SLOW IVP 40 mg 0600,1400 CASSIUS Administration Cefepime HCl 1 gm/ Sodium 100 mls @ 200 mls/hr 03/11/20 09:00 03/16/20 08:11 Chloride IVPB 100 mls Q12HR CASSIUS Administration Sodium Chloride 1,000 mls @ 50 mls/hr 03/12/20 14:45 03/16/20 00:11 Normal Saline 0.9% IV 1,000 mls .Q20H CASSIUS Administration Nicardipine HCl 50 mg/ Sodium 250 mls @ 0 mls/hr 03/15/20 16:30 03/16/20 12:10 Chloride IVPB 250 mls INF CASSIUS Administration Protocol Titrate Insulin Human Regular 0 units 03/13/20 14:47 03/15/20 01:00 Insulin Regular 300 Units/3 Ml Vial SC 2 unit .MODERATE SLIDING SC PRN Administration Moderate Correctional Scale Levothyroxine Sodium 112 mcg 03/12/20 06:00 03/16/20 05:59 Levothyroxine Sodium 112 Mcg Tab PO 112 mcg 0600 CASSIUS Administration Levothyroxine Sodium 25 mcg 03/12/20 06:00 03/16/20 05:59 Levothyroxine Sodium 25 Mcg Tab PO 25 mcg 0600 CASSIUS Administration Methylprednisolone Sodium Succinate 40 mg 03/11/20 10:00 03/16/20 10:13 Methylprednisolone Sod Succ 40 Mg Vial IVP 40 mg 0200,1000,1800 CASSIUS Administration Sodium Chloride 10 ml 03/11/20 21:00 03/16/20 08:09 Flush - Normal Saline 10 Ml Syringe IVF 10 ml Q12HR CASSIUS Administration Venlafaxine HCl 150 mg 03/11/20 21:00 03/15/20 21:52 Venlafaxine Hcl Xr 150 Mg Cap PO 150 mg QPM CASSIUS Administration - Exam General Appearance: awake alert Eye: PERRL ENT: normocephalic atraumatic Neck: supple, no JVD Heart: RRR, no murmur, no gallops, no rubs Respiratory: normal chest expansion, no tachypnea, rhonchi Gastrointestinal: soft, non-tender, non-distended, normal bowel sounds Neurological: cranial nerve grossly intact, no focal deficits Hosp A/P - Plan "Patient is a 69 years old female who has significant past medical history of atrial fib on Eliquis, hypertension, who was transferred from [place] secondary to acute hypoxic respiratory failure due to angioedema. Pt was intubated in the ED prior to transfer. Acute hypoxic respiratory failure - likely multifactorial including angioedema/CHF/pneumonitis/aspiration --s/p successful extubation on 03/15 --Status post bronchoscopy, showed atelectasis on 03/11/20 --cont empiric IV abx, steroids, nebs treatments. Wean O2 as niko --further mgt as per pulmonology --SP eval, resume diet if able CHF exac, probably acute on chronic, diastolic --cont IV diuresis, EF 45-50% --cardiology is following --cont IV diuretics, maintain neg fluid balance Angioedema --d/t ACEi, added to allergy list Atrial Fib --reportedly, pt had traumatic intubation. Consider restart pt on Eliquis once ok with pul Hypothyroidism --resumed home med HTN --resumed home med DM 2 --Metformin on hold. cont ISS for now" 03/16: The patient has been weaned off to high flow nasal cannula at 30% and she saturating well. We will likely be able to titrate down to nasal cannula today. She remains on antibiotics, steroids, and nebulized treatments. Her antihypertensive medications were adjusted by cardiology. Wean off nicardipine drip as tolerated.
[2020-03-16] MEDS: Venlafaxine HCl XR 150 MG CAP PO SCH (20:01)
--- NOTE | 2020-03-16 20:06 | PRG ---
DATE OF SERVICE: 03/16/2020 SUBJECTIVE: Ms. Kearns has no complaints. She has had no fever. OBJECTIVE: VITAL SIGNS: Vital signs have been stable. She is transitioning off Cardene. Blood pressure this evening is 128/69, heart rate is in 80s, respiratory rates in the teens, and oximetry is 93% to 98%. LUNGS: Clear. HEART: Regular rhythm. ABDOMEN: Soft. LABORATORY: White count 9.4, hemoglobin 11.6, and platelets 157. Electrolytes; sodium 141, potassium 3.1, chloride 97, bicarb 34, BUN 23, and creatinine 0.77. IMPRESSION: 1. Respiratory failure, status post intubation x2. 2. Angioedema. 3. Hypertensive pulmonary edema. 4. Deconditioning. Overall, she appears to be doing well and gets a little better each day. We will continue the current care. Job ID: [id number] MTDD
[2020-03-17] MEDS: methylPREDNISolone Sod Succ 40 MG VIAL IVP SCH ×2 (01:41→10:11)
[2020-03-17] MEDS: Budesonide 0.25 MG/2 ML NEB INH SCH ×5 (02:15→19:15)
[2020-03-17 04:31] LABS: #Basophils 0.1 thou/uL (0.0-0.2); #Monocytes 0.8 thou/uL (0.11-0.59); #Neutrophils 9.1 thou/uL (1.40-6.50); %Basophils 0.7 % (0.0-1.0); %Eosinophils 0.2 % (0.0-10.0); %Lymphocytes 9.1 % (21.0-51.0); %Monocytes 7.4 % (0.0-10.0); %Neutrophils 82.6 % (42.0-75.0); Hemoglobin 11.5 g/dL (12.0-16.0); Mean Corpuscular HGB CONC 33.1 g/dL (32.0-36.0); Mean Corpuscular Hemoglobin 31.6 pg (27.0-31.0); Mean Corpuscular Volume 95.3 fL (78.0-98.0); Mean Platelet Volume 9.4 fL (7.4-10.4); Platelet Count 165 thou/uL (130-400); RBC Distribution Width 14.1 % (11.5-14.5); Red Blood Cell (RBC) Count 3.65 mill/uL (4.20-5.40)
[2020-03-17 04:52] LABS: Anion Gap 12 mmol/L (10-20); BUN (Urea Nitrogen) 31 mg/dL (9.8-20.1); Calc. Creatinine Clearance 91 mL/min (70-130); Calcium 9.1 mg/dL (7.8-10.44); Carbon Dioxide 33 mmol/L (23-31); Chloride 97 mmol/L (98-107); Estimated GFR-MDRD 72; Glucose 126 mg/dL (80-115); Potassium 3.3 mmol/L (3.5-5.1); Sodium 139 mmol/L (136-145)
[2020-03-17] MEDS: Levothyroxine Sodium 25 MCG TAB PO SCH (06:21)
[2020-03-17] MEDS: Levothyroxine Sodium 112 MCG TAB PO SCH (06:21)
[2020-03-17] MEDS: Furosemide 40 MG/4 ML VIAL SLOW IVP SCH ×2 (06:21→14:04)
[2020-03-17] MEDS ORDERED: Potassium Chloride 20 MEQ TAB PO SCH ×2 (06:30→09:45)
[2020-03-17] MEDS: Cefepime 1 GM in Sodium Chloride 0.9% 100 ML IVPB SCH (08:34)
[2020-03-17] MEDS: Famotidine/PF 20 mg/2ml Vial SLOW IVP SCH ×2 (08:34→22:11)
[2020-03-17] MEDS: Carvedilol 6.25 MG TAB PO SCH ×2 (08:35→17:07)
[2020-03-17] MEDS: NIFEdipine XL 90 MG TAB PO SCH (08:35)
[2020-03-17] MEDS: Enoxaparin Sodium 80 MG/0.8 ML SYRINGE SC SCH ×2 (08:36→22:11)
--- NOTE | 2020-03-17 10:23 | PRG ---
DATE OF SERVICE: 03/17/2020 SUBJECTIVE: Ms. Kearns is sitting up in a chair. She feels fine. No chest pain or pressure. She is not short of breath. OBJECTIVE: VITAL SIGNS: Blood pressure 155/66 earlier, now it is reported at 104 systolic sitting. LUNGS: Clear. CARDIAC: Normal S1, normal S2. ABDOMEN: Soft, nontender. ASSESSMENT: 1. Hypertension, improved. 2. Continue current medical regimen. Okay to move to telemetry. Dr. Perez to resume care tomorrow. Job ID: [id number]
--- NOTE | 2020-03-17 12:15 | RAD ---
PORTABLE CHEST: DATE: 03/17/2020. PROVIDED CLINICAL HISTORY: Respiratory insufficiency. FINDINGS: Comparison 03/16/2020. Significant interval change with respect to the prior examination is not appa rent. IMPRESSION: As above. POS: OKSANA
--- NOTE | 2020-03-17 13:43 | PDOC.HOSPP ---
- Subjective Encounter Date: 03/17/20 Subjective: Patient is alert and oriented today. Her blood pressure is better controlled. She denies chest pain or shortness of breath. - Objective Vital Signs & Weight: Vital Signs (12 hours) Temp Pulse Pulse Pulse Resp BP BP 03/17/20 12:00 98.0 F 03/17/20 10:28 77 15 03/17/20 09:12 81 79 153/83 H 03/17/20 08:35 82 155/66 H 03/17/20 08:00 98.0 F 03/17/20 06:50 03/17/20 06:47 99 16 03/17/20 04:00 98 F 03/17/20 02:16 90 13 BP Pulse Ox Pulse Ox 03/17/20 12:00 03/17/20 10:28 03/17/20 09:12 148/55 H 95 03/17/20 08:35 03/17/20 08:00 92 L 03/17/20 06:50 99 03/17/20 06:47 94 L 03/17/20 04:00 03/17/20 02:16 92 L Weight Admit Weight 198 lb 13.711 oz Weight 190 lb 7.67 oz Most Recent Monitor Data Heart Rate from ECG 76 NIBP 161/83 NIBP BP-Mean 109 Respiration from ECG 14 SpO2 84 I&O: 03/16/20 03/17/20 03/18/20 06:59 06:59 06:59 Intake Total 2725 2150 Output Total 4410 1470 764 Balance -1685 -390 -680 Result Diagrams: 03/17/20 04:10 03/17/20 04:10 Additional Labs: Accuchecks 03/16/20 03/16/20 22:33 16:28 POC Glucose 139 H 136 H Hospitalist ROS - Medication Medications: Active Medications Generic Name Dose Route Start Last Admin Trade Name Freq PRN Reason Stop Dose Admin Albuterol/Ipratropium 3 ml 03/11/20 10:30 03/17/20 10:28 Ipratropium/Albuterol Sulfate 3 Ml Neb NEB 3 ml [id number] CASSIUS Administration Budesonide 0.25 mg 03/12/20 10:30 03/17/20 10:31 Budesonide 0.25 Mg/2 Ml Neb INH 0.25 mg [id number] CASSIUS Administration Carvedilol 12.5 mg 03/16/20 17:00 03/17/20 08:35 Carvedilol 6.25 Mg Tab PO 12.5 mg [id number] CASSIUS Administration Clonidine 0.1 mg 03/15/20 09:57 03/16/20 02:01 Clonidine 0.1 Mg Tab PO 0.1 mg Q4H PRN Administration SBP GREATER THAN 160 Enoxaparin Sodium 80 mg 03/15/20 21:00 03/17/20 08:36 Enoxaparin Sodium 80 Mg/0.8 Ml Syringe SC 80 mg 0900,2100 CASSIUS Administration Famotidine 20 mg 03/11/20 09:00 03/17/20 08:34 Famotidine/Pf 20 Mg/2ml Vial SLOW IVP 20 mg BID CASSIUS Administration Furosemide 40 mg 03/14/20 06:00 03/17/20 06:21 Furosemide 40 Mg/4 Ml Vial SLOW IVP 40 mg 0600,1400 CASSIUS Administration Sodium Chloride 1,000 mls @ 50 mls/hr 03/12/20 14:45 03/16/20 17:54 Normal Saline 0.9% IV 1,000 mls .Q20H CASSIUS Administration Insulin Human Regular 0 units 03/13/20 14:47 03/15/20 01:00 Insulin Regular 300 Units/3 Ml Vial SC 2 unit .MODERATE SLIDING SC PRN Administration Moderate Correctional Scale Levothyroxine Sodium 112 mcg 03/12/20 06:00 03/17/20 06:21 Levothyroxine Sodium 112 Mcg Tab PO 112 mcg 0600 CASSIUS Administration Levothyroxine Sodium 25 mcg 03/12/20 06:00 03/17/20 06:21 Levothyroxine Sodium 25 Mcg Tab PO 25 mcg 0600 CASSIUS Administration Nifedipine 90 mg 03/17/20 09:00 03/17/20 08:35 Nifedipine Xl 90 Mg Tab PO 90 mg DAILY CASSIUS Administration Sodium Chloride 10 ml 03/11/20 21:00 03/17/20 08:36 Flush - Normal Saline 10 Ml Syringe IVF 10 ml Q12HR CASSIUS Administration Venlafaxine HCl 150 mg 03/11/20 21:00 03/16/20 20:01 Venlafaxine Hcl Xr 150 Mg Cap PO 150 mg QPM CASSIUS Administration - Exam General Appearance: awake alert ENT: normocephalic atraumatic Neck: supple, no JVD Respiratory: normal chest expansion, no tachypnea Gastrointestinal: soft, non-tender, non-distended, normal bowel sounds Neurological: cranial nerve grossly intact, no focal deficits Hosp A/P - Plan "Patient is a 69 years old female who has significant past medical history of atrial fib on Eliquis, hypertension, who was transferred from [place] secondary to acute hypoxic respiratory failure due to angioedema. Pt was intubated in the ED prior to transfer. Acute hypoxic respiratory failure - likely multifactorial including angioedema/CHF/pneumonitis/aspiration --s/p successful extubation on 03/15 --Status post bronchoscopy, showed atelectasis on 03/11/20 --cont empiric IV abx, steroids, nebs treatments. Wean O2 as niko --further mgt as per pulmonology --SP eval, resume diet if able CHF exac, probably acute on chronic, diastolic --cont IV diuresis, EF 45-50% --cardiology is following --cont IV diuretics, maintain neg fluid balance Angioedema --d/t ACEi, added to allergy list Atrial Fib --reportedly, pt had traumatic intubation. Consider restart pt on Eliquis once ok with pul Hypothyroidism --resumed home med HTN --resumed home med DM 2 --Metformin on hold. cont ISS for now" 03/16: The patient has been weaned off to high flow nasal cannula at 30% and she saturating well. We will likely be able to titrate down to nasal cannula today. She remains on antibiotics, steroids, and nebulized treatments. Her antihypertensive medications were adjusted by cardiology. Wean off nicardipine drip as tolerated. 03/17: The patient's respiratory status is improving. Continue supplemental oxygen as needed. Chest x-ray appears to be stable. She was weaned off nicardipine drip. Continue current antihypertensive medications. Speech therapy to evaluate the patient for safety of initiating diet. She can be transferred to telemetry today.
[2020-03-17] MEDS: Sodium Chloride 0.9% 1,000 ML IV SCH (14:04)
--- NOTE | 2020-03-17 14:50 | PRG ---
DATE OF SERVICE: 03/17/2020 SUBJECTIVE: uKsum Kearns is doing well. She is sitting in the chair at the bedside. Denied shortness of breath. OBJECTIVE: VITAL SIGNS: She is afebrile, heart rate 76, blood pressure 161/83, respiratory rate 14. LUNGS: Clear. HEART: Regular rhythm. ABDOMEN: Soft. EXTREMITIES: Without edema. LABORATORY DATA: White count 11, hemoglobin 11.5, and platelets 165. Sodium 139, potassium 3.3, chloride 97, bicarb 33, BUN 31, and creatinine 0.79. IMPRESSION: 1. Respiratory failure associated with hypertensive pulmonary edema. 2. Angioedema, felt to be secondary to YOAN inhibitor on admission. 3. Obesity. 4. Deconditioning. Chest x-ray today is unchanged. Overall, she appears to be improving and is stable to move out of Critical Care. Job ID: [id number]
[2020-03-17] MEDS: Amoxicillin/Potassium Clav 875 MG TAB PO SCH (22:10)
[2020-03-17] MEDS: Venlafaxine HCl XR 150 MG CAP PO SCH (22:11)
[2020-03-18] MEDS: Budesonide 0.25 MG/2 ML NEB INH SCH ×7 (00:08→22:37)
[2020-03-18] MEDS: cloNIDine 0.1 MG TAB PO PRN (00:11)
[2020-03-18 05:19] LABS: #Basophils 0.1 thou/uL (0.0-0.2); #Lymphocytes 1.7 thou/uL (1.20-3.40); #Monocytes 1.2 thou/uL (0.11-0.59); #Neutrophils 8.2 thou/uL (1.40-6.50); %Basophils 0.5 % (0.0-1.0); %Eosinophils 0.3 % (0.0-10.0); %Lymphocytes 14.8 % (21.0-51.0); %Monocytes 11.1 % (0.0-10.0); %Neutrophils 73.2 % (42.0-75.0); Hemoglobin 10.9 g/dL (12.0-16.0); Mean Corpuscular HGB CONC 33.2 g/dL (32.0-36.0); Mean Corpuscular Hemoglobin 31.8 pg (27.0-31.0); Mean Corpuscular Volume 95.7 fL (78.0-98.0); Mean Platelet Volume 9.1 fL (7.4-10.4); Platelet Count 153 thou/uL (130-400); RBC Distribution Width 13.9 % (11.5-14.5); Red Blood Cell (RBC) Count 3.42 mill/uL (4.20-5.40); White Blood Cell (WBC) Count 11.1 thou/uL (4.8-10.8)
[2020-03-18 05:43] LABS: Anion Gap 11 mmol/L (10-20); BUN (Urea Nitrogen) 33 mg/dL (9.8-20.1); Calc. Creatinine Clearance 94 mL/min (70-130); Calcium 8.8 mg/dL (7.8-10.44); Carbon Dioxide 34 mmol/L (23-31); Chloride 98 mmol/L (98-107); Estimated GFR-MDRD 73; Glucose 97 mg/dL (80-115); Potassium 3.5 mmol/L (3.5-5.1); Sodium 139 mmol/L (136-145)
[2020-03-18] MEDS: Levothyroxine Sodium 25 MCG TAB PO SCH (06:08)
[2020-03-18] MEDS: Levothyroxine Sodium 112 MCG TAB PO SCH (06:08)
[2020-03-18] MEDS: Furosemide 40 MG/4 ML VIAL SLOW IVP SCH (06:08)
[2020-03-18] MEDS ORDERED: Potassium Chloride 20 MEQ TAB PO SCH (07:00)
[2020-03-18] MEDS: Sodium Chloride 0.9% 1,000 ML IV SCH (09:34)
[2020-03-18] MEDS: NIFEdipine XL 90 MG TAB PO SCH (09:39)
[2020-03-18] MEDS: Enoxaparin Sodium 80 MG/0.8 ML SYRINGE SC SCH ×2 (09:39→22:26)
[2020-03-18] MEDS: predniSONE 20 MG TAB PO SCH (09:40)
[2020-03-18] MEDS: Carvedilol 6.25 MG TAB PO SCH ×4 (09:40→22:25)
[2020-03-18] MEDS: Amoxicillin/Potassium Clav 875 MG TAB PO SCH ×2 (09:40→22:26)
[2020-03-18] MEDS: Hydrochlorothiazide 25 MG TAB PO SCH (09:41)
[2020-03-18] MEDS: Famotidine/PF 20 mg/2ml Vial SLOW IVP SCH ×2 (09:41→22:25)
--- NOTE | 2020-03-18 12:42 | PDOC.HOSPP ---
- Subjective Encounter Date: 03/18/20 Subjective: The patient was seen and examined. Her shortness of breath is improving. Blood pressure control is better than yesterday. - Objective Vital Signs & Weight: Vital Signs (12 hours) Temp Pulse Resp BP Pulse Ox 03/18/20 11:49 97.7 F 67 18 137/67 92 L 03/18/20 10:41 86 L 03/18/20 10:39 778 H 20 86 L 03/18/20 07:30 98 03/18/20 04:00 97.8 F 03/18/20 03:28 98 Weight Admit Weight 198 lb 13.711 oz Weight 185 lb 10.067 oz Most Recent Monitor Data Heart Rate from ECG 82 NIBP 161/102 NIBP BP-Mean 121 Respiration from ECG 20 SpO2 97 I&O: 03/17/20 03/18/20 03/19/20 06:59 06:59 06:59 Intake Total 2150 1442 Output Total 2540 2200 Balance -390 -178 Result Diagrams: 03/18/20 05:00 03/18/20 05:00 Additional Labs: Accuchecks 03/18/20 03/18/20 03/17/20 12:30 05:10 22:10 POC Glucose 106 H 95 149 H 03/17/20 03/17/20 16:09 11:07 POC Glucose 118 H 157 H Hospitalist ROS - Medication Medications: Active Medications Generic Name Dose Route Start Last Admin Trade Name Freq PRN Reason Stop Dose Admin Albuterol/Ipratropium 3 ml 03/11/20 10:30 03/18/20 10:39 Ipratropium/Albuterol Sulfate 3 Ml Neb NEB 3 ml [id number] CASSIUS Administration Amoxicillin/Clavulanate Potassium 875 mg 03/17/20 21:00 03/18/20 09:40 Amoxicillin/Potassium Clav 875 Mg Tab PO 875 mg Q12HR CASSIUS Administration Budesonide 0.25 mg 03/12/20 10:30 03/18/20 10:41 Budesonide 0.25 Mg/2 Ml Neb INH 0.25 mg [id number] CASSIUS Administration Carvedilol 12.5 mg 03/18/20 09:00 03/18/20 09:40 Carvedilol 6.25 Mg Tab PO 12.5 mg TID CASSIUS Administration Clonidine 0.1 mg 03/15/20 09:57 03/18/20 00:11 Clonidine 0.1 Mg Tab PO 0.1 mg Q4H PRN Administration SBP GREATER THAN 160 Enoxaparin Sodium 80 mg 03/15/20 21:00 03/18/20 09:39 Enoxaparin Sodium 80 Mg/0.8 Ml Syringe SC 80 mg 0900,2100 CASSIUS Administration Famotidine 20 mg 03/11/20 09:00 03/18/20 09:41 Famotidine/Pf 20 Mg/2ml Vial SLOW IVP 20 mg BID CASSIUS Administration Hydrochlorothiazide 25 mg 03/18/20 09:00 03/18/20 09:41 Hydrochlorothiazide 25 Mg Tab PO 25 mg DAILY CASSIUS Administration Sodium Chloride 1,000 mls @ 50 mls/hr 03/12/20 14:45 03/18/20 09:34 Normal Saline 0.9% IV 1,000 mls .Q20H CASSIUS Administration Insulin Human Regular 0 units 03/13/20 14:47 03/15/20 01:00 Insulin Regular 300 Units/3 Ml Vial SC 2 unit .MODERATE SLIDING SC PRN Administration Moderate Correctional Scale Levothyroxine Sodium 112 mcg 03/12/20 06:00 03/18/20 06:08 Levothyroxine Sodium 112 Mcg Tab PO 112 mcg 0600 CASSIUS Administration Levothyroxine Sodium 25 mcg 03/12/20 06:00 03/18/20 06:08 Levothyroxine Sodium 25 Mcg Tab PO 25 mcg 0600 CASSIUS Administration Nifedipine 90 mg 03/17/20 09:00 03/18/20 09:39 Nifedipine Xl 90 Mg Tab PO 90 mg DAILY CASSIUS Administration Prednisone 40 mg 03/18/20 08:00 03/18/20 09:40 Prednisone 20 Mg Tab PO 40 mg QAM-WM CASSIUS Administration Sodium Chloride 10 ml 03/11/20 21:00 03/18/20 09:41 Flush - Normal Saline 10 Ml Syringe IVF Not Given Q12HR CASSIUS Venlafaxine HCl 150 mg 03/11/20 21:00 03/17/20 22:11 Venlafaxine Hcl Xr 150 Mg Cap PO 150 mg QPM CASSIUS Administration - Exam General Appearance: awake alert ENT: normocephalic atraumatic Neck: supple, no JVD Heart: RRR, no murmur, no gallops, no rubs, normal peripheral pulses Respiratory: CTAB, normal chest expansion, no tachypnea Gastrointestinal: soft, non-tender, non-distended, normal bowel sounds Neurological: cranial nerve grossly intact, no focal deficits Hosp A/P - Plan "Patient is a 69 years old female who has significant past medical history of atrial fib on Eliquis, hypertension, who was transferred from [place] secondary to acute hypoxic respiratory failure due to angioedema. Pt was intubated in the ED prior to transfer. Acute hypoxic respiratory failure - likely multifactorial including angioedema/CHF/pneumonitis/aspiration --s/p successful extubation on 03/15 --Status post bronchoscopy, showed atelectasis on 03/11/20 --Her overall condition is improving. She is on oral antibiotics and corticosteroids. CHF exac, probably acute on chronic, diastolic --IV diuresis was placed on hold by cardiology. EF 45-50% Diastolic CHF likely worsened with uncontrolled hypertension. Her symptoms improving with better blood pressure control. 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 Angioedema --d/t ACEi, added to allergy list Atrial Fib Rate controlled on carvedilol. Restart Eliquis if no further invasive interventions. Hypothyroidism --resumed home med HTN This was uncontrolled in the ICU and the patient was on nicardipine drip. I weaned off successfully to oral antihypertensive medications. DM 2 --Metformin on hold. cont ISS for now"
--- NOTE | 2020-03-18 14:04 | PRG ---
DATE OF SERVICE: 03/18/2020 SUBJECTIVE: Ms. Kearns is doing much better today. She has been extubated through the weekend. She is seen on telemetry monitoring. She has no current complaints. I have not been able to talk to her about her current episode . She states she had throat swelling that occurred acutely. No chest pain, pressure, or shortness of breath. She did require intubation. She has done much better. OBJECTIVE: VITAL SIGNS: Blood pressure 137/67, pulse 67, temp 97.7. LUNGS: Clear to auscultation. HEART: Irregularly irregular. ABDOMEN: Soft, nontender, nondistended. EXTREMITIES: No edema. IMPRESSION: 1. Angioedema. 2. Abnormal EKG. 3. Paroxysmal atrial fibrillation. RECOMMENDATIONS: The patient has no current symptoms suggesting angina, although she does have a previous history of PAD which increases her risk of underlying coronary disease. We will plan on likely coronary angiography. She did have a noninvasive stress study performed in the office dated 09/25/2019. LVEF was mildly diminished at 45%, but no ischemia present. Likely plan on proceeding with angio on Wednesday. Job ID: [id number]
[2020-03-18] MEDS: Venlafaxine HCl XR 150 MG CAP PO SCH (22:25)
[2020-03-19] MEDS: Budesonide 0.25 MG/2 ML NEB INH SCH ×6 (01:57→22:20)
[2020-03-19 04:52] LABS: #Lymphocytes 2.1 thou/uL (1.20-3.40); #Neutrophils 7.4 thou/uL (1.40-6.50); %Basophils 0.4 % (0.0-1.0); %Eosinophils 0.4 % (0.0-10.0); %Lymphocytes 19.4 % (21.0-51.0); %Monocytes 9.8 % (0.0-10.0); Hemoglobin 11.1 g/dL (12.0-16.0); Mean Corpuscular Hemoglobin 31.3 pg (27.0-31.0); Mean Corpuscular Volume 97.8 fL (78.0-98.0); Mean Platelet Volume 9.3 fL (7.4-10.4); Platelet Count 144 thou/uL (130-400); RBC Distribution Width 14.1 % (11.5-14.5); Red Blood Cell (RBC) Count 3.54 mill/uL (4.20-5.40); White Blood Cell (WBC) Count 10.6 thou/uL (4.8-10.8)
[2020-03-19 05:13] LABS: Anion Gap 12 mmol/L (10-20); BUN (Urea Nitrogen) 25 mg/dL (9.8-20.1); Calc. Creatinine Clearance 102 mL/min (70-130); Calcium 8.3 mg/dL (7.8-10.44); Carbon Dioxide 30 mmol/L (23-31); Chloride 99 mmol/L (98-107); Estimated GFR-MDRD 83; Glucose 81 mg/dL (80-115); Potassium 3.6 mmol/L (3.5-5.1); Sodium 137 mmol/L (136-145)
[2020-03-19] MEDS: Levothyroxine Sodium 25 MCG TAB PO SCH (05:22)
[2020-03-19] MEDS: Levothyroxine Sodium 112 MCG TAB PO SCH (05:23)
[2020-03-19] MEDS: Sodium Chloride 0.9% 1,000 ML IV SCH (05:42)
[2020-03-19] MEDS: Famotidine/PF 20 mg/2ml Vial SLOW IVP SCH ×2 (08:10→21:41)
[2020-03-19] MEDS: Enoxaparin Sodium 80 MG/0.8 ML SYRINGE SC SCH (08:10)
[2020-03-19] MEDS: predniSONE 20 MG TAB PO SCH (08:10)
[2020-03-19] MEDS: NIFEdipine XL 90 MG TAB PO SCH (08:10)
[2020-03-19] MEDS: Hydrochlorothiazide 25 MG TAB PO SCH (08:10)
[2020-03-19] MEDS: Amoxicillin/Potassium Clav 875 MG TAB PO SCH ×2 (08:10→21:40)
[2020-03-19] MEDS: Carvedilol 6.25 MG TAB PO SCH ×3 (08:10→21:40)
--- NOTE | 2020-03-19 09:54 | PRG ---
DATE OF SERVICE: 03/19/2020 SUBJECTIVE: Ms. Kearns is doing much better. No current complaints. Her shortness of breath continues to improve. OBJECTIVE: VITAL SIGNS: Blood pressure 136/85, pulse 80, temperature 97.8. LUNGS: Clear to auscultation. HEART: Regular rate and rhythm. ABDOMEN: Soft, nontender, and nondistended. EXTREMITIES: No edema. IMPRESSION: 1. Respiratory failure. 2. Angioedema. 3. PAD. 4. Abnormal EKG. RECOMMENDATIONS: Ms. Kearns had a grossly abnormal EKG upon arrival. She did have a recent stress study that was felt to be within normal limits. Given her recent EKG and respiratory failure, we would recommend coronary angiography plus PCI. I discussed the procedure in full detail with Ms. Kearns. Risks included not limited to the following: I discussed the procedure in full detail with the patient. The risks of the procedure were also discussed. The risks of the procedure include but are not limited to the following: , stroke, [place], need for emergency surgery, loss of limb, bleeding, and infection, as well as a reaction to the dye causing kidney failure and needing long-term dialysis. I also discussed the risks of PCI to include all of the above including coronary dissection and perforation in addition to acute stent thrombosis and restenosis. All questions about the procedure were answered. Given the above, the patient agreed to proceed with coronary angiography and possible PCI. All questions were answered. Given the above, the patient agreed to proceed with above procedure. Also discussed drug-coated versus nondrug-coated stent placement. There were no complications proceed if needed. Job ID: [id number]
[2020-03-19] MEDS ORDERED: Iopamidol 370 76% 100 ML VIAL ONE (10:46)
--- NOTE | 2020-03-19 11:54 | PDOC.FMACP ---
Advance Care Planning - Problem (1) Atrial fibrillation Status: Acute Code(s): I48.91 - UNSPECIFIED ATRIAL FIBRILLATION (2) CHF (congestive heart failure) Status: Acute Code(s): I50.9 - HEART FAILURE, UNSPECIFIED (3) Palliative care encounter Status: Acute Code(s): Z51.5 - ENCOUNTER FOR PALLIATIVE CARE (4) Acute respiratory failure with hypoxia Status: Acute Code(s): J96.01 - ACUTE RESPIRATORY FAILURE WITH HYPOXIA - Note Participants: patient, palliative care Summary: Palliative care addressed Advanced Care Planning, opportunity to decline. The diagnosis, prognosis and goals of care were discussed. Appropriate forms and documentation to accomplish the goals of care were discussed. All questions were answered. Ms Kearns elected to complete a MPOA and Directive to Physician. Original given to the patient along with a copy as well as copy placed on patient chart. Continue currently with full resuscitation. Please also refer to palliative care notes in note section. Time Spent (mins): 15
[2020-03-19] MEDS ORDERED: Hydrocortisone Sod Succ/PF 100 mg/2 ml Vial ONE (12:28)
[2020-03-19] MEDS ORDERED: EPINEPHrine 1 MG/ML AMP ONE (12:29)
[2020-03-19] MEDS ORDERED: EPINEPHrine 1 MG/10 ML Abboject SYRINGE ONE (12:29)
[2020-03-19] MEDS ORDERED: Acetaminophen/Codeine 30-300mg Tablet PO PRN ×2 (12:52)
[2020-03-19] MEDS ORDERED: Sodium Chloride 0.9% 200 ML IV PRN (12:52)
[2020-03-19] MEDS ORDERED: Nitroglycerin 0.4 MG TAB (25 Tab Bottle) SL PRN (12:52)
--- NOTE | 2020-03-19 13:45 | PDOC.HOSPP ---
- Subjective Encounter Date: 03/19/20 Subjective: The patient is alert and oriented. Her respiratory status has been improving over the past few days. She denies any new complaints. - Objective Vital Signs & Weight: Vital Signs (12 hours) Temp Pulse Resp BP BP Pulse Ox 03/19/20 13:15 98.3 F 72 16 124/59 L 124/59 L 97 03/19/20 10:47 65 20 95 03/19/20 07:56 97.8 F 84 20 136/85 93 L 03/19/20 06:34 92 L 03/19/20 06:32 83 20 92 L 03/19/20 04:00 97.5 F L 71 16 143/70 H 95 03/19/20 01:56 62 20 95 Weight Admit Weight 198 lb 13.711 oz Weight 185 lb 9 oz Most Recent Monitor Data Heart Rate from ECG 82 NIBP 161/102 NIBP BP-Mean 121 Respiration from ECG 20 SpO2 97 I&O: 03/18/20 03/19/20 03/20/20 06:59 06:59 06:59 Intake Total 1442 Output Total 2200 Balance -758 Result Diagrams: 03/19/20 03:59 03/19/20 03:59 Additional Labs: Accuchecks 03/19/20 03/18/20 03/18/20 10:39 21:15 16:54 POC Glucose 101 H 102 H 143 H Hospitalist ROS - Medication Medications: Active Medications Generic Name Dose Route Start Last Admin Trade Name Freq PRN Reason Stop Dose Admin Albuterol/Ipratropium 3 ml 03/11/20 10:30 03/19/20 10:47 Ipratropium/Albuterol Sulfate 3 Ml Neb NEB 3 ml [id number] CASSIUS Administration Amoxicillin/Clavulanate Potassium 875 mg 03/17/20 21:00 03/19/20 08:10 Amoxicillin/Potassium Clav 875 Mg Tab PO 875 mg Q12HR CASSIUS Administration Budesonide 0.25 mg 03/12/20 10:30 03/19/20 10:49 Budesonide 0.25 Mg/2 Ml Neb INH 0.25 mg [id number] CASSIUS Administration Carvedilol 12.5 mg 03/18/20 09:00 03/19/20 08:10 Carvedilol 6.25 Mg Tab PO 12.5 mg TID CASSIUS Administration Clonidine 0.1 mg 03/15/20 09:57 03/18/20 00:11 Clonidine 0.1 Mg Tab PO 0.1 mg Q4H PRN Administration SBP GREATER THAN 160 Famotidine 20 mg 03/11/20 09:00 03/19/20 08:10 Famotidine/Pf 20 Mg/2ml Vial SLOW IVP 20 mg BID CASSIUS Administration Hydrochlorothiazide 25 mg 03/18/20 09:00 03/19/20 08:10 Hydrochlorothiazide 25 Mg Tab PO 25 mg DAILY CASSIUS Administration Sodium Chloride 1,000 mls @ 50 mls/hr 03/12/20 14:45 03/19/20 05:42 Normal Saline 0.9% IV 1,000 mls .Q20H CASSIUS Administration Insulin Human Regular 0 units 03/13/20 14:47 03/15/20 01:00 Insulin Regular 300 Units/3 Ml Vial SC 2 unit .MODERATE SLIDING SC PRN Administration Moderate Correctional Scale Levothyroxine Sodium 112 mcg 03/12/20 06:00 03/19/20 05:23 Levothyroxine Sodium 112 Mcg Tab PO 112 mcg 0600 CASSIUS Administration Levothyroxine Sodium 25 mcg 03/12/20 06:00 03/19/20 05:22 Levothyroxine Sodium 25 Mcg Tab PO 25 mcg 0600 CASSIUS Administration Nifedipine 90 mg 03/17/20 09:00 03/19/20 08:10 Nifedipine Xl 90 Mg Tab PO 90 mg DAILY CASSIUS Administration Prednisone 40 mg 03/18/20 08:00 03/19/20 08:10 Prednisone 20 Mg Tab PO 40 mg QAM-WM CASSIUS Administration Sodium Chloride 10 ml 03/11/20 21:00 03/19/20 08:11 Flush - Normal Saline 10 Ml Syringe IVF 10 ml Q12HR CASSIUS Administration Venlafaxine HCl 150 mg 03/11/20 21:00 03/18/20 22:25 Venlafaxine Hcl Xr 150 Mg Cap PO 150 mg QPM CASSIUS Administration - Exam General Appearance: awake alert ENT: normocephalic atraumatic Neck: supple, no JVD Heart: RRR, no murmur, no gallops, no rubs Respiratory: CTAB, no wheezes, no rales, no ronchi Gastrointestinal: soft Neurological: cranial nerve grossly intact Hosp A/P - Plan Patient is a 69 years old female who has significant past medical history of atrial fib on Eliquis, hypertension, who was transferred from [place] secondary to acute hypoxic respiratory failure due to angioedema. Pt was intubated in the ED prior to transfer. Acute hypoxic respiratory failure - likely multifactorial including angioede ma/CHF/pneumonitis/aspiration --s/p successful extubation on 03/15 --Status post bronchoscopy, showed atelectasis on 03/11/20 --Her overall condition is improving. She is on oral antibiotics and cor ticosteroids. CHF exac, probably acute on chronic, diastolic --IV diuresis was placed on hold by cardiology. EF 45-50% Diastolic CHF likely worsened with uncontrolled hypertension. Her symptoms improving with better blood pressure control. Abnormal EKG. The patient will undergo a cardiac catheterization due to abnormal EKG and presentation with respiratory failure. Angioedema --d/t ACEi, added to allergy list Atrial Fib Rate controlled on carvedilol. Restart Eliquis if no further invasive interventions. Hypothyroidism --resumed home med HTN This was uncontrolled in the ICU and the patient was on nicardipine drip. I weaned off successfully to oral antihypertensive medications. DM 2 --Metformin on hold. cont ISS for now
--- NOTE | 2020-03-19 19:31 | PRG ---
DATE OF SERVICE: 03/19/2020 SUBJECTIVE: Kusum Kearns remains stable. She underwent catheterization. The reports not up yet in the computer, but Dr. Perez informed me that she had severe bilateral renal artery stenosis. This might explain her extreme hypertension. In my opinion, it might not be unreasonable to dilate and stent one of the renal arteries. Her hemodynamics have been stable. Lungs, heart, and abdomen are unchanged. IMPRESSION: Hypertensive pulmonary edema after presenting with angioedema. PLAN: Job ID: [id number]
[2020-03-19] MEDS ORDERED: Enoxaparin Sodium 80 MG/0.8 ML SYRINGE SC SCH (21:00)
[2020-03-19] MEDS: Venlafaxine HCl XR 150 MG CAP PO SCH (21:42)
[2020-03-20] MEDS: Budesonide 0.25 MG/2 ML NEB INH SCH ×6 (02:15→22:08)
[2020-03-20] MEDS: Levothyroxine Sodium 25 MCG TAB PO SCH (05:39)
[2020-03-20] MEDS: Sodium Chloride 0.9% 1,000 ML IV SCH (05:39)
[2020-03-20] MEDS: Levothyroxine Sodium 112 MCG TAB PO SCH (05:39)
[2020-03-20] MEDS ORDERED: Communication Order-Pharmacy FS SCH (07:45)
[2020-03-20] MEDS ORDERED: Sodium Chloride 0.9% 1,000 ML IV SCH ×2 (07:45→13:30)
--- NOTE | 2020-03-20 08:08 | PRG ---
DATE OF SERVICE: 03/19/2020 SUBJECTIVE: I spoke with Ms. Kearns after the procedure, also spoke with her daughter in addition to Dr. Snyder and Dr. Tony Mueller. The patient had an episode of acute respiratory distress associated with severe hypertension. During angiography, I did visualize her bilateral renal arteries in addition to coronary anatomy. She did have a lesion in the circumflex artery in addition to bilateral renal artery stenosis. She may have ischemic MR from the lesion within circumflex artery, but more likely to have significant hypertension with recent requirement of intubation for bilateral renal artery stenosis. The left renal artery is severely stenosed with a 60 mm gradient. After much discussion, we decided to proceed with stent placement of the left renal artery. I discussed procedure in full detail with Ms. Kearns in addition to her daughter. Risks included, not limited to the following: , stroke, CA, need for emergent surgery, loss of limb, bleeding, infection, as well as subcapsular hematoma, requiring a nephrectomy in addition to in-stent restenosis, subacute thrombosis. I have discussed all the above and decided to proceed with the above procedure. Further recommendations pending the above. Job ID: [id number]
[2020-03-20 08:23] LABS: #Eosinphils 0.1 thou/uL (0.0-0.7); #Lymphocytes 2.1 thou/uL (1.20-3.40); #Monocytes 0.8 thou/uL (0.11-0.59); #Neutrophils 7.5 thou/uL (1.40-6.50); %Basophils 0.1 % (0.0-1.0); %Eosinophils 0.8 % (0.0-10.0); %Lymphocytes 19.6 % (21.0-51.0); %Monocytes 7.9 % (0.0-10.0); %Neutrophils 71.7 % (42.0-75.0); Hemoglobin 11.1 g/dL (12.0-16.0); Mean Corpuscular HGB CONC 32.8 g/dL (32.0-36.0); Mean Corpuscular Hemoglobin 32.1 pg (27.0-31.0); Mean Corpuscular Volume 97.7 fL (78.0-98.0); Mean Platelet Volume 9.2 fL (7.4-10.4); Platelet Count 135 thou/uL (130-400); RBC Distribution Width 13.9 % (11.5-14.5); Red Blood Cell (RBC) Count 3.47 mill/uL (4.20-5.40); White Blood Cell (WBC) Count 10.5 thou/uL (4.8-10.8)
[2020-03-20 08:28] LABS: Anion Gap 11 mmol/L (10-20); BUN (Urea Nitrogen) 19 mg/dL (9.8-20.1); Calc. Creatinine Clearance 113 mL/min (70-130); Calcium 8.5 mg/dL (7.8-10.44); Carbon Dioxide 31 mmol/L (23-31); Chloride 98 mmol/L (98-107); Estimated GFR-MDRD Greater than 90; Glucose 94 mg/dL (80-115); Potassium 3.2 mmol/L (3.5-5.1); Sodium 137 mmol/L (136-145)
[2020-03-20] MEDS: Amoxicillin/Potassium Clav 875 MG TAB PO SCH ×2 (08:39→21:36)
[2020-03-20] MEDS: NIFEdipine XL 90 MG TAB PO SCH (08:39)
[2020-03-20] MEDS: Carvedilol 6.25 MG TAB PO SCH ×3 (08:39→21:36)
[2020-03-20] MEDS: predniSONE 20 MG TAB PO SCH (08:39)
[2020-03-20] MEDS: Hydrochlorothiazide 25 MG TAB PO SCH (08:40)
[2020-03-20] MEDS: Famotidine/PF 20 mg/2ml Vial SLOW IVP SCH ×2 (08:40→21:36)
[2020-03-20] MEDS ORDERED: Iopamidol 370 76% 100 ML VIAL ONE (08:53)
[2020-03-20] MEDS ORDERED: Iopamidol 370 76% 50 ML VIAL FS ONE (08:53)
[2020-03-20] MEDS ORDERED: Potassium Chloride 20 MEQ TAB PO SCH ×2 (09:15→17:00)
[2020-03-20] MEDS ORDERED: Insulin Regular 300 UNITS/3 ML VIAL SC PRN (12:00)
[2020-03-20] MEDS ORDERED: Heparin 10,000 UNITS/ 10 ML VIAL ONE (12:11)
[2020-03-20] MEDS ORDERED: Nitroglycerin 100MG/250ML BOT 0 ML ONE (12:11)
[2020-03-20] MEDS ORDERED: Midazolam HCl 2 mg/2 ml Vial ONE (12:50)
[2020-03-20] MEDS ORDERED: Fentanyl 100 MCG/2 ML VIAL ONE (12:50)
[2020-03-20 12:57] VITALS: BMI 33.3
[2020-03-20] MEDS ORDERED: Protamine Sulfate 50 MG/5 ML VIAL ONE (13:35)
--- NOTE | 2020-03-20 14:20 | OP ---
DATE OF PROCEDURE: 03/20/2020 PREPROCEDURE DIAGNOSES: Severe renal artery stenosis and flash pulmonary edema. POSTOPERATIVE DIAGNOSES: Severe renal artery stenosis and flash pulmonary edema. PROCEDURE PERFORMED: 1. Successful PTCA/stent to the left renal artery with a 6 x 18 mm Express renal stent with a 6 x 40 mm balloon catheter. 2. IVUS of the renal artery. COMPLICATIONS: None. ESTIMATED BLOOD LOSS: Less than 20 mL. DESCRIPTION OF PROCEDURE: Patient was prepped and draped in sterile fashion. Access was obtained in the right femoral artery under ultrasound guidance. Micropuncture sheath was employed. RDC catheter was placed into the renal artery successfully. There was a 70 mm gradient present. A [place] Plus wire was placed distally in the renal artery successfully. A 4 x 20 mm balloon catheter was then placed over the wire and inflated to nominal pressure. It was then removed and replaced with a IVUS to assess the distal reference diameter. The distal reference diameter was estimated at 6.8. The IVUS was then removed and replaced with a 6 x 18 mm Express renal stent. This was placed successfully with 1 to 2 mm into the aorta. There was a slight waste present in the proximal region. This was confirmed by IVUS. The IVUS catheter was removed and replaced with a 6 x 40 mm balloon catheter. The 6 x 20 was not available. The 6 x 40 was placed assisted within the stent and the rest of the balloon in the aorta. This was inflated to 12 atmospheres successfully. There was excellent angiographic study with no significant gradient present. Job ID: [id number]
[2020-03-20] MEDS ORDERED: predniSONE 20 MG TAB PO SCH (15:15)
--- NOTE | 2020-03-20 15:21 | PRG ---
DATE OF SERVICE: 03/20/2020 SUBJECTIVE: Kusum Kearns underwent cardiac catheterization today. I believe she was to have a renal stent placed. I saw her after she got back. She is doing well. She had no shortness of breath. OBJECTIVE: VITAL SIGNS: She is afebrile. Heart rate is in 60s, blood pressure 147/80, respiratory rates in the teens. LUNGS: Clear. IMPRESSION: 1. Chronic obstructive pulmonary disease, clinically stable. 2. We will decrease her prednisone. 3. Renal artery stenosis. Hopefully, the stenting procedure will lead to significant improvement in her blood pressure. 4. Status post hypertensive pulmonary edema. 5. Status post angioedema. Overall, she is stable. Job ID: [id number]
--- NOTE | 2020-03-20 16:35 | PDOC.HOSPP ---
- Subjective Encounter Date: 03/20/20 Subjective: She feels well today and denies any complaints. - Objective Vital Signs & Weight: Vital Signs (12 hours) Temp Pulse Resp BP BP Pulse Ox 03/20/20 14:54 147/80 H 03/20/20 14:26 64 20 94 L 03/20/20 11:59 97.6 F 68 18 127/58 L 98 03/20/20 10:46 67 20 97 03/20/20 08:39 75 160/70 H 03/20/20 08:37 96.6 F L 75 20 160/70 H 94 L 03/20/20 06:39 96 03/20/20 06:36 67 20 96 Weight Admit Weight 198 lb 13.711 oz Weight 188 lb Most Recent Monitor Data Heart Rate from ECG 82 NIBP 161/102 NIBP BP-Mean 121 Respiration from ECG 20 SpO2 97 I&O: 03/19/20 03/20/20 03/21/20 06:59 06:59 06:59 Intake Total 1980 Output Total 1275 Balance 705 Result Diagrams: 03/20/20 07:54 03/20/20 07:54 Additional Labs: Accuchecks 03/20/20 03/20/20 03/19/20 10:34 05:05 20:13 POC Glucose 95 99 171 H 03/19/20 17:07 POC Glucose 167 H Hospitalist ROS - Medication Medications: Active Medications Generic Name Dose Route Start Last Admin Trade Name Freq PRN Reason Stop Dose Admin Acetaminophen/Codeine Phosphate 2 tab 03/19/20 12:52 03/20/20 14:55 Acetaminophen/Codeine 30-300mg Tablet PO 2 tab Q4H PRN Administration Moderate Pain (4-6) Albuterol/Ipratropium 3 ml 03/11/20 10:30 03/20/20 14:26 Ipratropium/Albuterol Sulfate 3 Ml Neb NEB 3 ml [id number] CASSIUS Administration Amoxicillin/Clavulanate Potassium 875 mg 03/17/20 21:00 03/20/20 08:39 Amoxicillin/Potassium Clav 875 Mg Tab PO 875 mg Q12HR CASSIUS Administration Budesonide 0.25 mg 03/12/20 10:30 03/20/20 14:28 Budesonide 0.25 Mg/2 Ml Neb INH 0.25 mg [id number] CASSIUS Administration Carvedilol 12.5 mg 03/18/20 09:00 03/20/20 14:54 Carvedilol 6.25 Mg Tab PO 12.5 mg TID CASSIUS Administration Clonidine 0.1 mg 03/15/20 09:57 03/18/20 00:11 Clonidine 0.1 Mg Tab PO 0.1 mg Q4H PRN Administration SBP GREATER THAN 160 Famotidine 20 mg 03/11/20 09:00 03/20/20 08:40 Famotidine/Pf 20 Mg/2ml Vial SLOW IVP 20 mg BID CASSIUS Administration Hydrochlorothiazide 25 mg 03/18/20 09:00 03/20/20 08:40 Hydrochlorothiazide 25 Mg Tab PO 25 mg DAILY CASSIUS Administration Sodium Chloride 1,000 mls @ 100 mls/hr 03/20/20 13:30 03/20/20 14:05 Normal Saline 0.9% IV 03/20/20 21:31 1,000 mls .Q10H CASSIUS Administration Levothyroxine Sodium 112 mcg 03/12/20 06:00 03/20/20 05:39 Levothyroxine Sodium 112 Mcg Tab PO 112 mcg 0600 CASSIUS Administration Levothyroxine Sodium 25 mcg 03/12/20 06:00 03/20/20 05:39 Levothyroxine Sodium 25 Mcg Tab PO 25 mcg 0600 CASSIUS Administration Nifedipine 90 mg 03/17/20 09:00 03/20/20 08:39 Nifedipine Xl 90 Mg Tab PO 90 mg DAILY CASSIUS Administration Prednisone 20 mg 03/20/20 15:15 03/20/20 15:19 Prednisone 20 Mg Tab PO 03/20/20 18:00 Not Given NOW CASSIUS Sodium Chloride 10 ml 03/11/20 21:00 03/20/20 08:41 Flush - Normal Saline 10 Ml Syringe IVF Not Given Q12HR CASSIUS Venlafaxine HCl 150 mg 03/11/20 21:00 03/19/20 21:42 Venlafaxine Hcl Xr 150 Mg Cap PO 150 mg QPM CASSIUS Administration - Exam General Appearance: awake alert ENT: normocephalic atraumatic Neck: supple, no JVD Heart: no murmur, no gallops, irregular Respiratory: normal chest expansion, no tachypnea Gastrointestinal: soft Neurological: cranial nerve grossly intact, no focal deficits Hosp A/P - Plan Patient is a 69 years old female who has significant past medical history of atrial fib on Eliquis, hypertension, who was transferred from [place] secondary to acute hypoxic respiratory failure due to angioedema. Pt was intubated in the ED prior to transfer. Acute hypoxic respiratory failure - likely multifactorial including angioedema/CHF/pneumonitis/aspiration --s/p successful extubation on 03/15 --Status post bronchoscopy, showed atelectasis on 03/11/20 --Her overall condition is improving. She is on oral antibiotics and corticosteroids. -- Saturating well on room air this morning. CHF exac, probably acute on chronic, diastolic --IV diuresis was placed on hold by cardiology. EF 45-50% Diastolic CHF likely worsened with uncontrolled hypertension. Her symptoms improving with better blood pressure control. Renal artery steosis s/p stenting. Angioedema --d/t ACEi, added to allergy list Atrial Fib Rate controlled on carvedilol. Restart Eliquis if no further invasive interventions. Hypothyroidism --resumed home med HTN This was uncontrolled in the ICU and the patient was on nicardipine drip. I weaned off successfully to oral antihypertensive medications. DM 2 --Metformin on hold. cont ISS for now
[2020-03-20] MEDS: Venlafaxine HCl XR 150 MG CAP PO SCH (21:37)
[2020-03-21] MEDS: Budesonide 0.25 MG/2 ML NEB INH SCH ×4 (02:23→13:59)
[2020-03-21 04:33] LABS: ALT (SGPT) 24 U/L (8-55); AST (SGOT) 19 U/L (5-34); Albumin 3.4 g/dL (3.4-4.8); Alkaline Phosphatase 53 U/L (40-110); Anion Gap 12 mmol/L (10-20); BUN (Urea Nitrogen) 18 mg/dL (9.8-20.1); Bilirubin, Total 0.5 mg/dL (0.2-1.2); Calc. Creatinine Clearance 107 mL/min (70-130); Calcium 8.2 mg/dL (7.8-10.44); Carbon Dioxide 26 mmol/L (23-31); Chloride 102 mmol/L (98-107); Estimated GFR-MDRD 86; Globulin 1.8 g/dL (2.4-3.5); Glucose 87 mg/dL (80-115); Protein, Total 5.2 g/dL (6.0-8.3); Sodium 136 mmol/L (136-145)
[2020-03-21 04:45] LABS: #Eosinphils 0.1 thou/uL (0.0-0.7); #Lymphocytes 1.6 thou/uL (1.20-3.40); #Monocytes 0.7 thou/uL (0.11-0.59); #Neutrophils 7.3 thou/uL (1.40-6.50); %Basophils 0.1 % (0.0-1.0); %Eosinophils 0.6 % (0.0-10.0); %Lymphocytes 16.7 % (21.0-51.0); %Monocytes 6.7 % (0.0-10.0); %Neutrophils 75.9 % (42.0-75.0); Hemoglobin 10.4 g/dL (12.0-16.0); Mean Corpuscular Hemoglobin 32.5 pg (27.0-31.0); Mean Corpuscular Volume 95.6 fL (78.0-98.0); Mean Platelet Volume 9.4 fL (7.4-10.4); Platelet Count 118 thou/uL (130-400); Platelet Morphology Comment Appears Decreased; RBC Distribution Width 13.9 % (11.5-14.5); White Blood Cell (WBC) Count 9.6 thou/uL (4.8-10.8)
[2020-03-21] MEDS: Levothyroxine Sodium 112 MCG TAB PO SCH (05:59)
[2020-03-21] MEDS: Levothyroxine Sodium 25 MCG TAB PO SCH (05:59)
[2020-03-21] MEDS ORDERED: predniSONE 20 MG TAB PO SCH (08:00)
[2020-03-21] MEDS: Amoxicillin/Potassium Clav 875 MG TAB PO SCH (08:20)
[2020-03-21] MEDS: Carvedilol 6.25 MG TAB PO SCH ×2 (08:20→14:53)
[2020-03-21] MEDS: Famotidine/PF 20 mg/2ml Vial SLOW IVP SCH (08:21)
[2020-03-21] MEDS: Hydrochlorothiazide 25 MG TAB PO SCH (08:21)
[2020-03-21] MEDS: NIFEdipine XL 90 MG TAB PO SCH (08:21)
--- NOTE | 2020-03-21 09:44 | PRG ---
DATE OF SERVICE: 03/21/2020 HISTORY OF PRESENT ILLNESS: Ms. Kearns is doing very well. No current complaints. No chest pain, pressure, or shortness of breath. Blood pressure was slightly elevated. OBJECTIVE: VITAL SIGNS: Blood pressure of 171/70, pulse 65, and temperature afebrile. LUNGS: Clear to auscultation. HEART: Regular rate and rhythm. ABDOMEN: Soft, nontender, and nondistended. EXTREMITIES: Show no edema. IMPRESSION: 1. Acute pulmonary edema. 2. Coronary artery disease. 3. Peripheral vascular disease. 4. Renal artery stenosis. 5. Paroxysmal atrial fibrillation. RECOMMENDATIONS: Ms. Kearns recently underwent a successful stent implantation to the left renal artery. She had severe stenosis with a near 90-mm gradient. She did have 2 episodes of acute pulmonary edema likely related to bilateral renal artery stenosis. At this point, we will continue with aggressive medical therapy. I have reinstituted her Eliquis for paroxysmal atrial fibrillation in addition to low-dose aspirin. She is currently on Coreg in addition to nifedipine. Could consider hydralazine or hydrochlorothiazide. Avoid YOAN inhibitor therapy and ARB due to questionable angioedema. Otherwise, from my standpoint, I have no further recommendations. Plan is to follow up with Ms. Kearns as an outpatient. Job ID: [id number]
--- NOTE | 2020-03-21 12:05 | PDOC.HOSPP ---
- Subjective Encounter Date: 03/21/20 - Objective Vital Signs & Weight: Vital Signs (12 hours) Temp Pulse Resp BP Pulse Ox 03/21/20 11:00 97.5 F L 67 18 117/58 L 98 03/21/20 10:47 80 14 03/21/20 07:46 98 03/21/20 07:23 97.5 F L 65 20 175/74 H 98 03/21/20 07:03 70 14 03/21/20 04:00 98.1 F 80 18 171/70 H 98 03/21/20 02:22 16 Weight Admit Weight 198 lb 13.711 oz Weight 189 lb Most Recent Monitor Data Heart Rate from ECG 82 NIBP 161/102 NIBP BP-Mean 121 Respiration from ECG 20 SpO2 97 I&O: 03/20/20 03/21/20 03/22/20 06:59 06:59 06:59 Intake Total 1980 Output Total 1275 900 Balance 705 -900 Result Diagrams: 03/21/20 03:52 03/21/20 03:52 Additional Labs: Accuchecks 03/21/20 03/21/20 03/20/20 11:01 05:45 20:57 POC Glucose 119 H 86 109 H 03/20/20 17:11 POC Glucose 131 H Hospitalist ROS - Medication Medications: Active Medications Generic Name Dose Route Start Last Admin Trade Name Freq PRN Reason Stop Dose Admin Acetaminophen/Codeine Phosphate 2 tab 03/19/20 12:52 03/20/20 14:55 Acetaminophen/Codeine 30-300mg Tablet PO 2 tab Q4H PRN Administration Moderate Pain (4-6) Albuterol/Ipratropium 3 ml 03/11/20 10:30 03/21/20 10:47 Ipratropium/Albuterol Sulfate 3 Ml Neb NEB 3 ml [id number] CASSIUS Administration Amoxicillin/Clavulanate Potassium 875 mg 03/17/20 21:00 03/21/20 08:20 Amoxicillin/Potassium Clav 875 Mg Tab PO 875 mg Q12HR CASSIUS Administration Budesonide 0.25 mg 03/12/20 10:30 03/21/20 10:47 Budesonide 0.25 Mg/2 Ml Neb INH 0.25 mg [id number] CASSIUS Administration Carvedilol 12.5 mg 03/18/20 09:00 03/21/20 08:20 Carvedilol 6.25 Mg Tab PO 12.5 mg TID CASSIUS Administration Clonidine 0.1 mg 03/15/20 09:57 03/18/20 00:11 Clonidine 0.1 Mg Tab PO 0.1 mg Q4H PRN Administration SBP GREATER THAN 160 Famotidine 20 mg 03/11/20 09:00 03/21/20 08:21 Famotidine/Pf 20 Mg/2ml Vial SLOW IVP 20 mg BID CASSIUS Administration Hydrochlorothiazide 25 mg 03/18/20 09:00 03/21/20 08:21 Hydrochlorothiazide 25 Mg Tab PO 25 mg DAILY CASSIUS Administration Levothyroxine Sodium 112 mcg 03/12/20 06:00 03/21/20 05:59 Levothyroxine Sodium 112 Mcg Tab PO 112 mcg 0600 CASSIUS Administration Levothyroxine Sodium 25 mcg 03/12/20 06:00 03/21/20 05:59 Levothyroxine Sodium 25 Mcg Tab PO 25 mcg 0600 CASSIUS Administration Nifedipine 90 mg 03/17/20 09:00 03/21/20 08:21 Nifedipine Xl 90 Mg Tab PO 90 mg DAILY CASSIUS Administration Prednisone 20 mg 03/21/20 08:00 03/21/20 08:20 Prednisone 20 Mg Tab PO 20 mg QAM-WM CASSIUS Administration Sodium Chloride 10 ml 03/11/20 21:00 03/21/20 08:21 Flush - Normal Saline 10 Ml Syringe IVF 10 ml Q12HR CASSIUS Administration Venlafaxine HCl 150 mg 03/11/20 21:00 03/20/20 21:37 Venlafaxine Hcl Xr 150 Mg Cap PO 150 mg QPM CASSIUS Administration Hosp A/P - Plan Patient is a 69 years old female who has significant past medical history of atrial fib on Eliquis, hypertension, who was transferred from [place] secondary to acute hypoxic respiratory failure due to angioedema. Pt was intubated in the ED prior to transfer. Acute hypoxic respiratory failure - likely multifactorial including angioedema/CHF/pneumonitis/aspiration --s/p successful extubation on 03/15 --Status post bronchoscopy, showed atelectasis on 03/11/20 --Her overall condition is improving. She is on oral antibiotics and corticosteroids. -- Saturating well on room air this morning. CHF exac, probably acute on chronic, diastolic --IV diuresis was placed on hold by cardiology. EF 45-50% Diastolic CHF likely worsened with uncontrolled hypertension. Her symptoms improving with better blood pressure control. Renal artery steosis s/p stenting. Angioedema --d/t ACEi, added to allergy list Atrial Fib Rate controlled on carvedilol. Restart Eliquis if no further invasive interventions. Hypothyroidism --resumed home med HTN This was uncontrolled in the ICU and the patient was on nicardipine drip. I weaned off successfully to oral antihypertensive medications. DM 2 --Metformin on hold. cont ISS for now
--- NOTE | 2020-03-21 12:10 | PDOC.BPN ---
- Brief Progress Note Encounter Date: 03/21/20 The patient underwent ambulating pulse oxymetry test today. Her oxygen saturation dropped to 86% on room air and improved with 2L oxygyn to 94%.
[2020-03-21 15:38] VITALS: BP 136/62; TEMP 97.9
[2020-03-21] MEDS ORDERED: Apixaban 5 MG TAB PO SCH (21:00)
--- NOTE | 2020-03-22 01:22 | DIS ---
DATE OF ADMISSION: 03/10/2020 DATE OF DISCHARGE: 03/21/2020 DISCHARGE DIAGNOSES: 1. Acute respiratory failure with hypoxia superimposed on chronic respiratory failure. 2. Acute on chronic diastolic heart failure. 3. Renal artery stenosis. 4. Hypertensive emergency. 5. Angioedema. 6. Atrial fibrillation. 7. Hypothyroidism. 8. Hypertension. 9. Diabetes mellitus, type 2. DISCHARGE MEDICATIONS: 1. Potassium chloride 10 mEq daily. 2. Nifedipine 90 mg orally daily. 3. Metformin 500 mg orally daily. 4. Levothyroxine 137 mcg orally daily. 5. Cashiers 5 one to two tablets q.6 hours as needed for pain. 6. Hydrochlorothiazide 25 mg orally daily. 7. Clopidogrel 75 mg orally daily. 8. Cilostazol 100 mg orally twice daily. 9. Carvedilol 6.25 mg orally twice daily. 10. Atorvastatin 20 mg orally daily. 11. Aspirin 81 mg orally daily. 12. Eliquis 5 mg orally twice daily. HISTORY OF PRESENT ILLNESS AND HOSPITAL COURSE: The patient is a 69-year-old female with past medical history of atrial fibrillation on anticoagulation, hypertension, and diastolic heart failure who was sent to the hospital for acute respiratory failure with hypoxia. The patient originally presented with angioedema requiring intubation. She was placed on corticosteroids, and her YOAN inhibitors were discontinued. The patient developed hypertensive emergency causing pulmonary edema requiring IV antihypertensive medications including nicardipine drip. Her blood pressure was controlled by adding several oral antihypertensive medications to her regimen. The patient was diuresed and we were able to extubate her after her pulmonary edema improved. The patient underwent cardiac catheterization, which showed evidence of severe bilateral renal artery stenosis. Subsequently, a stent was placed in the left renal artery by Dr. Perez. The patient tolerated the procedure well. Her postoperative stay was largely unremarkable. Job ID: [id number]
[2020-03-22] MEDS ORDERED: Aspirin 81 mg Enteric Coated Tablet PO SCH (09:00)
--- NOTE | 2020-03-24 11:58 | EKG ---
Test Reason : Blood Pressure : / mmHG Vent. Rate : 066 BPM Atrial Rate : 066 BPM P-R Int : 140 ms QRS Dur : 078 ms QT Int : 366 ms P-R-T Axes : 073 057 075 degrees QTc Int : 383 ms Sinus rhythm with Premature atrial complexes Nonspecific T wave abnormality Abnormal ECG When compared with ECG of 11-MAR-2020 15:35, Premature atrial complexes are now Present T wave inversion no longer evident in Lateral leads QT has shortened Confirmed by SID FLOREZ (2) on 03/24/2020 11:58:17 AM Referred By: MADYSON Confirmed By:SID FLOREZ
== END 2020-03-21 16:54 | disposition home health service (06) | DRG 907 ==
LOC: ERS 17:03 → CCU 17:24 → 2NO 03-18 07:40
PROVIDERS: ADMIT Student in an Organized Health Care Education/Training Program; ATTEND Student in an Organized Health Care Education/Training Program
PROC: 5A1955Z Respiratory Ventilation, Greater than 96 Consecutive Hours (ICD-10-PCS; principal; 2020-03-10)
PROC: 02HV33Z Insertion of Infusion Device into Superior Vena Cava, Percutaneous Approach (ICD-10-PCS; 2020-03-11)
PROC: 0B918ZZ Drainage of Trachea, Via Natural or Artificial Opening Endoscopic (ICD-10-PCS; 2020-03-11)
PROC: 0B9M8ZZ Drainage of Bilateral Lungs, Via Natural or Artificial Opening Endoscopic (ICD-10-PCS; 2020-03-11)
PROC: 3E033XZ Introduction of Vasopressor into Peripheral Vein, Percutaneous Approach (ICD-10-PCS; 2020-03-11)
PROC: 4A023N7 Measurement of Cardiac Sampling and Pressure, Left Heart, Percutaneous Approach (ICD-10-PCS; 2020-03-19)
PROC: B2111ZZ Fluoroscopy of Multiple Coronary Arteries using Low Osmolar Contrast (ICD-10-PCS; 2020-03-19)
PROC: B4181ZZ Fluoroscopy of Bilateral Renal Arteries using Low Osmolar Contrast (ICD-10-PCS; 2020-03-19)
PROC: 047A3DZ Dilation of Left Renal Artery with Intraluminal Device, Percutaneous Approach (ICD-10-PCS; 2020-03-20)
DX: T78.3XXA Angioneurotic edema, initial encounter (principal); J96.01 Acute respiratory failure with hypoxia; I50.33 Acute on chronic diastolic (congestive) heart failure; J69.0 Pneumonitis due to inhalation of food and vomit; J98.11 Atelectasis; G93.40 Encephalopathy, unspecified; I42.9 Cardiomyopathy, unspecified; I16.1 Hypertensive emergency; I25.10 Atherosclerotic heart disease of native coronary artery without angina pectoris; E03.9 Hypothyroidism, unspecified; F17.210 Nicotine dependence, cigarettes, uncomplicated; F32.9 Major depressive disorder, single episode, unspecified; E11.51 Type 2 diabetes mellitus with diabetic peripheral angiopathy without gangrene; I11.0 Hypertensive heart disease with heart failure; R94.31 Abnormal electrocardiogram [ECG] [EKG]; I48.0 Paroxysmal atrial fibrillation; J44.9 Chronic obstructive pulmonary disease, unspecified; E66.9 Obesity, unspecified; I70.1 Atherosclerosis of renal artery; E78.00 Pure hypercholesterolemia, unspecified; F20.9 Schizophrenia, unspecified; T46.4X5A Adverse effect of angiotensin-converting-enzyme inhibitors, initial encounter; R53.81 Other malaise; Z79.82 Long term (current) use of aspirin; Z79.02 Long term (current) use of antithrombotics/antiplatelets; Z79.01 Long term (current) use of anticoagulants; Z79.84 Long term (current) use of oral hypoglycemic drugs; Z68.33 Body mass index [BMI] 33.0-33.9, adult
CPT/HCPCS: 31624; 36245; 36251; 36415; 36416; 37236; 37246; 37252; 71045; 71260; 74018; 74177; 76942; 80048; 80053; 82607; 82805; 83735; 83880; 84484; 85025; 85347; 87040; 87070; 87205; 87635; 93005; 93010; 93306; 93458; 94002; 94003; 94640; 94760; 96361; 96365; 96376; 99152; 99292; C1725; C1751; C1753; J0171; J0461; J0692; J1644; J1650; J1720; J1815; J1940; J2060; J2250; J2270; J2704; J2720; J2920; J2930; J3010; J3475; J3480; J3490; J7050; J7512; J7620; J7626; P9045; P9047; Q9967; S0028; U0003

== ENCOUNTER 2020-08-23 12:40 | Outpatient (CLI) | payer MEDICARE ==
[2020-08-23 14:02] LABS: #Basophils 0.1 10x3/uL (0.0-0.2); #Eosinphils 0.2 10x3/uL (0.0-0.5); #Monocytes 0.7 10x3/uL (0.0-1.1); #Neutrophils 6.7 10x3/uL (1.5-8.4); %Basophils 1.1 % (0.0-2.0); %Eosinophils 2.1 % (0.0-6.0); %Lymphocytes 17.6 % (18.0-47.0); %Monocytes 7.6 % (0.0-10.0); %Neutrophils 71.2 % (40.0-75.0); Hemoglobin 12.8 g/dL (12.0-15.5); Mean Corpuscular HGB CONC 31.9 g/dL (32.0-36.0); Mean Corpuscular Hemoglobin 28.1 pg (27.0-33.0); Mean Corpuscular Volume 88.1 fl (81.6-98.3); Mean Platelet Volume 11.4 fl (7.4-10.4); Platelet Count 242 10x3/uL (150-450); RBC Distribution Width 15.7 % (11.5-14.5); Red Blood Cell (RBC) Count 4.55 10x6/uL (3.90-5.03); White Blood Cell (WBC) Count 9.4 10x3/uL (3.5-10.5)
[2020-08-23 14:11] LABS: Anion Gap 15 mmol/L (10-20); BUN (Urea Nitrogen) 13 mg/dL (9.8-20.1); Calc. Creatinine Clearance 0 mL/min (70-130); Calcium 9.9 mg/dL (7.8-10.44); Carbon Dioxide 26 mmol/L (23-31); Chloride 99 mmol/L (98-107); Glucose 174 mg/dL (80-115); Potassium 3.7 mmol/L (3.5-5.1); Sodium 136 mmol/L (136-145)
[2020-08-23 23:16] LABS: SARS-CoV-2 PCR by NAA Not Detected (NotDetected)
== END 2020-08-23 12:41 | disposition home or self-care (01) ==
LOC: LABBT 12:40
PROVIDERS: ATTEND Orthopaedic Surgery
DX: Z01.818 Encounter for other preprocedural examination (principal); G56.02 Carpal tunnel syndrome, left upper limb; Z20.822 Contact with and (suspected) exposure to COVID-19
CPT/HCPCS: 80048; 85025; 93005; U0003; U0005; 87635; 93010

== ENCOUNTER 2020-08-28 07:29 | Day surgery (SDC) | payer MEDICARE ==
[2020-08-27 09:54] VITALS: BMI 29.5
[2020-08-28] MEDS ORDERED: Fentanyl 100 MCG/2 ML VIAL ONE (10:11)
[2020-08-28] MEDS ORDERED: Bupivacaine 0.25% HCL 30 ML VIAL ONE (10:22)
[2020-08-28] MEDS ORDERED: Lidocaine 1% w/Epinephrine 1:100K 20 ML VIAL ONE (10:22)
[2020-08-28] MEDS ORDERED: Dexamethasone 20 MG/5 ML VIAL ONE (10:42)
[2020-08-28] MEDS ORDERED: PROPOFOL 200 MG/20 ML VIAL ONE (10:42)
[2020-08-28] MEDS ORDERED: Ketorolac Tromethamine 30 MG/ML VIAL ONE (10:42)
[2020-08-28] MEDS ORDERED: Lidocaine 1% PF 5 ML VIAL ONE (10:42)
[2020-08-28] MEDS ORDERED: Ondansetron PF 4 MG/2 ML Vial ONE (10:42)
[2020-08-28] MEDS ORDERED: Labetalol HCl 100 MG/20 ML VIAL ONE (11:21)
[2020-08-28] MEDS ORDERED: HYDROcodone/Acetaminophen 5/325 mg Tablet ONE (12:40)
== END 2020-08-28 12:55 | disposition home or self-care (01) ==
LOC: SDC 07:29
PROVIDERS: ATTEND Orthopaedic Surgery
PROC: 01N50ZZ Release Median Nerve, Open Approach (ICD-10-PCS; principal; 2020-08-28)
DX: G56.02 Carpal tunnel syndrome, left upper limb (principal); E78.5 Hyperlipidemia, unspecified; M10.9 Gout, unspecified; I10 Essential (primary) hypertension; E03.9 Hypothyroidism, unspecified; F17.200 Nicotine dependence, unspecified, uncomplicated; Z79.01 Long term (current) use of anticoagulants; Z79.02 Long term (current) use of antithrombotics/antiplatelets; Z79.82 Long term (current) use of aspirin; Z79.84 Long term (current) use of oral hypoglycemic drugs; Z79.899 Other long term (current) drug therapy; Z88.8 Allergy status to other drugs, medicaments and biological substances
CPT/HCPCS: J0690; J1100; J1885; J2405; J2704; J3010; S0020

== ENCOUNTER 2021-06-21 18:24 | Inpatient (IN) | payer MEDICARE ==
[2021-06-21 18:56] LABS: #Basophils 0.1 thou/uL (0.0-0.2); #Eosinphils 0.1 thou/uL (0.0-0.7); #Lymphocytes 1.8 thou/uL (1.20-3.40); #Monocytes 0.7 thou/uL (0.11-0.59); #Neutrophils 4.9 thou/uL (1.40-6.50); %Basophils 1.2 % (0.0-1.0); %Eosinophils 1.8 % (0.0-10.0); %Lymphocytes 23.7 % (21.0-51.0); %Monocytes 8.6 % (0.0-10.0); %Neutrophils 64.6 % (42.0-75.0); Hemoglobin 10.3 g/dL (12.0-16.0); Mean Corpuscular HGB CONC 31.2 g/dL (32.0-36.0); Mean Corpuscular Hemoglobin 26.1 pg (27.0-31.0); Mean Corpuscular Volume 83.7 fL (78.0-98.0); Mean Platelet Volume 9.2 fL (7.4-10.4); Platelet Count 197 thou/uL (130-400); RBC Distribution Width 16.3 % (11.5-14.5); Red Blood Cell (RBC) Count 3.97 mill/uL (4.20-5.40); White Blood Cell (WBC) Count 7.6 thou/uL (4.8-10.8)
[2021-06-21 19:20] LABS: ALT (SGPT) 7 U/L (8-55); AST (SGOT) 17 U/L (5-34); Albumin 4.1 g/dL (3.4-4.8); Alkaline Phosphatase 92 U/L (40-110); Anion Gap 14 mmol/L (10-20); BUN (Urea Nitrogen) 17 mg/dL (9.8-20.1); Bilirubin, Total 0.5 mg/dL (0.2-1.2); Calc. Creatinine Clearance 0 mL/min (70-130); Calcium 9.1 mg/dL (7.8-10.44); Carbon Dioxide 25 mmol/L (23-31); Chloride 105 mmol/L (98-107); Globulin 2.2 g/dL (2.4-3.5); Glucose 112 mg/dL (80-115); Lipase 8 U/L (8-78); Protein, Total 6.3 g/dL (5.8-8.1); Sodium 140 mmol/L (136-145)
[2021-06-21] MEDS ORDERED: Morphine 4 MG/ML VIAL ONE (19:23)
[2021-06-21] MEDS ORDERED: Ondansetron PF 4 MG/2 ML Vial ONE (19:31)
[2021-06-21 19:51] LABS: CKMB 4.7 ng/mL (0-6.6)
[2021-06-21] MEDS ORDERED: Aspirin Chewable 81 MG TAB ONE (19:54)
[2021-06-21] MEDS ORDERED: Labetalol HCl 100 MG/20 ML VIAL SLOW IVP PRN (21:10)
[2021-06-21] MEDS ORDERED: hydrALAZINE 20 MG/ML VIAL SLOW IVP PRN (21:10)
[2021-06-21 22:14] LABS: INR-International Normal Ratio 1.1; Prothrombin Time 13.9 sec (12.0-14.7)
[2021-06-21 22:29] LABS: Critical Call Chem Troponin I RESULT DECREASING
[2021-06-21 23:37] VITALS: BMI 32.9
[2021-06-22] MEDS ORDERED: Enoxaparin Sodium 40 MG/0.4 ML SYRINGE SC SCH (00:30)
[2021-06-22 01:31] LABS: Critical Call Chem Troponin I RESULT DECREASING; Troponin I 1.392 ng/mL (< 0.028)
[2021-06-22] MEDS: Levothyroxine Sodium 25 MCG TAB PO SCH (05:55)
[2021-06-22] MEDS: Levothyroxine Sodium 112 MCG TAB PO SCH (05:55)
[2021-06-22] MEDS ORDERED: Aspirin 300 MG Suppository PR SCH (09:00)
[2021-06-22] MEDS ORDERED: Non-Formulary Item 1 EACH (Levothyroxine Sodium [Levothyroxine Sodium] 137 MCG Tablet) PO SCH (09:00)
[2021-06-22] MEDS: Carvedilol 6.25 MG TAB PO SCH ×2 (11:06→20:30)
[2021-06-22] MEDS: Aspirin 81 mg Enteric Coated Tablet PO SCH (11:06)
[2021-06-22 11:09] LABS: #Basophils 0.1 thou/uL (0.0-0.2); #Eosinphils 0.1 thou/uL (0.0-0.7); #Lymphocytes 1.7 thou/uL (1.20-3.40); #Monocytes 0.5 thou/uL (0.11-0.59); #Neutrophils 3.9 thou/uL (1.40-6.50); %Basophils 1.7 % (0.0-1.0); %Eosinophils 2.3 % (0.0-10.0); %Lymphocytes 27.3 % (21.0-51.0); %Monocytes 7.6 % (0.0-10.0); %Neutrophils 61.2 % (42.0-75.0); Hemoglobin 9.4 g/dL (12.0-16.0); Mean Corpuscular HGB CONC 31.5 g/dL (32.0-36.0); Mean Corpuscular Hemoglobin 26.9 pg (27.0-31.0); Mean Corpuscular Volume 85.2 fL (78.0-98.0); Mean Platelet Volume 9.3 fL (7.4-10.4); Platelet Count 178 thou/uL (130-400); RBC Distribution Width 16.1 % (11.5-14.5); White Blood Cell (WBC) Count 6.3 thou/uL (4.8-10.8)
[2021-06-22 11:21] LABS: Hemoglobin A1c 6.3 % (4.0-6.0)
[2021-06-22 11:35] LABS: ALT (SGPT) 8 U/L (8-55); AST (SGOT) 18 U/L (5-34); Albumin 3.9 g/dL (3.4-4.8); Alkaline Phosphatase 89 U/L (40-110); Anion Gap 14 mmol/L (10-20); BUN (Urea Nitrogen) 15 mg/dL (9.8-20.1); Bilirubin, Total 0.6 mg/dL (0.2-1.2); Calc. Creatinine Clearance 85 mL/min (70-130); Calcium 9.1 mg/dL (7.8-10.44); Carbon Dioxide 21 mmol/L (23-31); Cardiac Risk 3.6 (Less than 4.5); Chloride 106 mmol/L (98-107); Cholesterol 168 mg/dl (< 200 Desired); Globulin 2.1 g/dL (2.4-3.5); Glucose 122 mg/dL (80-115); HDL Cholesterol 47 mg/dL (>60 Neg Risk); LDL Cholesterol, Calculated 96 mg/dL; Potassium 4.3 mmol/L (3.5-5.1); Sodium 137 mmol/L (136-145); Triglycerides 127 mg/dL (Less than 150)
[2021-06-22 11:43] LABS: Critical Call Chem Troponin I RESULT DECREASING
[2021-06-22 12:03] LABS: CKMB 3.2 ng/mL (0-6.6)
[2021-06-22 16:32] LABS: SARS-CoV-2 PCR by NAA Not Detected (NotDetected)
[2021-06-22] MEDS: Rosuvastatin 20 MG TAB PO SCH (20:30)
[2021-06-22] MEDS: Enoxaparin Sodium 40 MG/0.4 ML SYRINGE SC SCH (20:31)
[2021-06-22] MEDS ORDERED: Rosuvastatin 20 MG TAB PO SCH (21:00)
[2021-06-22] MEDS ORDERED: Rosuvastatin 10 MG TAB PO SCH (21:00)
[2021-06-22 23:11] LABS: Anion Gap 12 mmol/L (10-20); BUN (Urea Nitrogen) 15 mg/dL (9.8-20.1); Calc. Creatinine Clearance 87 mL/min (70-130); Calcium 8.5 mg/dL (7.8-10.44); Carbon Dioxide 25 mmol/L (23-31); Chloride 106 mmol/L (98-107); Glucose 99 mg/dL (80-115); Potassium 4.3 mmol/L (3.5-5.1); Sodium 139 mmol/L (136-145)
[2021-06-23 01:43] LABS: Bilirubin Negative (Negative); Blood, Urine Trace (Negative); Glucose, Urine (Dipstick) Negative (Negative); Ketone, Urine Negative (Negative); Leukocyte Trace (Negative); Nitrite Negative (Negative); Protein, Urine (Dipstick) Negative (Neg-Trace); Urobilinogen 0.2 mg/dL (Less than 2)
[2021-06-23 01:46] LABS: Amphetamine Not Detected (NotDetected); Barbiturates Screen Not Detected (NotDetected); Benzodiazepine Screen Not Detected (NotDetected); Cocaine Metabolite Screen Not Detected (NotDetected); Methadone Not Detected (NotDetected); Methamphetamine Not Detected (NotDetected); Opiate Screen Detected (NotDetected); Oxycodone Screen Not Detected (NotDetected); Phencyclidine (PCP) Not Detected (NotDetected); THC/Cannabinoid Screen Not Detected (NotDetected); Tricyclic Screen Not Detected (NotDetected)
[2021-06-23 01:46] LABS: Clarity Clear (Clear); Specific Gravity, Urine 1.027 (1.002-1.036)
[2021-06-23 01:47] LABS: RBC/HPF 0-3 HPF (0-3)
[2021-06-23 01:48] LABS: Bacteria/HPF Rare-Few HPF (None Seen); Squamous Epithelial 0-3 HPF (0-3)
[2021-06-23] MEDS: Levothyroxine Sodium 112 MCG TAB PO SCH (05:36)
[2021-06-23] MEDS: Levothyroxine Sodium 25 MCG TAB PO SCH (05:36)
[2021-06-23 05:58] LABS: Hemoglobin 9.2 g/dL (12.0-16.0); Mean Corpuscular HGB CONC 31.8 g/dL (32.0-36.0); Mean Corpuscular Hemoglobin 27.1 pg (27.0-31.0); Mean Corpuscular Volume 85.1 fL (78.0-98.0); Platelet Count 163 thou/uL (130-400); RBC Distribution Width 16.1 % (11.5-14.5); Red Blood Cell (RBC) Count 3.38 mill/uL (4.20-5.40); White Blood Cell (WBC) Count 6.4 thou/uL (4.8-10.8)
[2021-06-23 06:17] LABS: Anion Gap 12 mmol/L (10-20); BUN (Urea Nitrogen) 12 mg/dL (9.8-20.1); Calc. Creatinine Clearance 93 mL/min (70-130); Calcium 8.9 mg/dL (7.8-10.44); Carbon Dioxide 23 mmol/L (23-31); Chloride 106 mmol/L (98-107); Glucose 113 mg/dL (80-115); Potassium 3.7 mmol/L (3.5-5.1); Sodium 137 mmol/L (136-145)
[2021-06-23] MEDS: Aspirin 81 mg Enteric Coated Tablet PO SCH (09:46)
[2021-06-23] MEDS: Carvedilol 6.25 MG TAB PO SCH ×2 (09:47→21:11)
[2021-06-23] MEDS ORDERED: Iopamidol 370 76% 100 ML VIAL ONE (10:13)
[2021-06-23] MEDS: Rosuvastatin 20 MG TAB PO SCH (21:11)
[2021-06-23] MEDS: Enoxaparin Sodium 40 MG/0.4 ML SYRINGE SC SCH (21:11)
[2021-06-24 04:37] LABS: Hemoglobin 9.3 g/dL (12.0-16.0); Mean Corpuscular HGB CONC 31.5 g/dL (32.0-36.0); Mean Corpuscular Hemoglobin 26.6 pg (27.0-31.0); Mean Corpuscular Volume 84.3 fL (78.0-98.0); Platelet Count 167 thou/uL (130-400); RBC Distribution Width 15.8 % (11.5-14.5); Red Blood Cell (RBC) Count 3.48 mill/uL (4.20-5.40); White Blood Cell (WBC) Count 5.7 thou/uL (4.8-10.8)
[2021-06-24 04:59] LABS: Anion Gap 11 mmol/L (10-20); BUN (Urea Nitrogen) 13 mg/dL (9.8-20.1); Calc. Creatinine Clearance 86 mL/min (70-130); Calcium 8.8 mg/dL (7.8-10.44); Carbon Dioxide 24 mmol/L (23-31); Chloride 105 mmol/L (98-107); Glucose 112 mg/dL (80-115); Potassium 3.6 mmol/L (3.5-5.1); Sodium 136 mmol/L (136-145)
[2021-06-24] MEDS: Levothyroxine Sodium 112 MCG TAB PO SCH (06:43)
[2021-06-24] MEDS: Levothyroxine Sodium 25 MCG TAB PO SCH (06:43)
[2021-06-24] MEDS: Aspirin 81 mg Enteric Coated Tablet PO SCH (08:30)
[2021-06-24] MEDS: Carvedilol 6.25 MG TAB PO SCH (11:17)
[2021-06-24 11:42] VITALS: BP 125/56; TEMP 97.7
== END 2021-06-24 16:02 | disposition home health service (06) | DRG 64 ==
LOC: ERS 18:24 → 2NO 20:24
PROVIDERS: ADMIT Family Medicine; ATTEND Internal Medicine
DX: I63.89 Other cerebral infarction (principal); I21.A1 Myocardial infarction type 2; I50.32 Chronic diastolic (congestive) heart failure; Z20.822 Contact with and (suspected) exposure to COVID-19; E03.9 Hypothyroidism, unspecified; D64.9 Anemia, unspecified; F32.A Depression, unspecified; I48.0 Paroxysmal atrial fibrillation; F17.210 Nicotine dependence, cigarettes, uncomplicated; R29.706 NIHSS score 6; I70.1 Atherosclerosis of renal artery; I11.0 Hypertensive heart disease with heart failure; G93.89 Other specified disorders of brain; Z79.01 Long term (current) use of anticoagulants; Z88.8 Allergy status to other drugs, medicaments and biological substances; Z79.82 Long term (current) use of aspirin; Z79.899 Other long term (current) drug therapy; Z79.890 Hormone replacement therapy; Z51.5 Encounter for palliative care; Z91.14 Patient's other noncompliance with medication regimen; I65.23 Occlusion and stenosis of bilateral carotid arteries
CPT/HCPCS: 36415; 36416; 70450; 70496; 70498; 70551; 71045; 80048; 80053; 80061; 80306; 80307; 81001; 82140; 82553; 83036; 83605; 83690; 83735; 84443; 84484; 85025; 85027; 85610; 93005; 93010; 93306; 95816; 95819; 95957; 96374; 96375; J1650; J2270; J2405; Q9967; U0003; U0005

== ENCOUNTER 2021-09-05 13:02 | Outpatient (CLI) | payer MEDICARE ==
[2021-09-05 13:53] LABS: #Basophils 0.1 10x3/uL (0.0-0.2); #Eosinphils 0.2 10x3/uL (0.0-0.5); #Monocytes 0.7 10x3/uL (0.0-1.1); #Neutrophils 5.7 10x3/uL (1.5-8.4); %Basophils 1.5 % (0.0-2.0); %Lymphocytes 17.9 % (18.0-47.0); %Monocytes 8.5 % (0.0-10.0); %Neutrophils 69.7 % (40.0-75.0); Hemoglobin 9.6 g/dL (12.0-15.5); Mean Corpuscular HGB CONC 29.1 g/dL (32.0-36.0); Mean Corpuscular Hemoglobin 23.9 pg (27.0-33.0); Mean Corpuscular Volume 82.3 fl (81.6-98.3); Platelet Count 231 10x3/uL (150-450); Red Blood Cell (RBC) Count 4.01 10x6/uL (3.90-5.03); White Blood Cell (WBC) Count 8.2 10x3/uL (3.5-10.5)
[2021-09-05 14:13] LABS: Anion Gap 18 mmol/L (10-20); BUN (Urea Nitrogen) 9 mg/dL (9.8-20.1); Calc. Creatinine Clearance 0 mL/min (70-130); Calcium 8.9 mg/dL (7.8-10.44); Carbon Dioxide 19 mmol/L (23-31); Chloride 109 mmol/L (98-107); Glucose 115 mg/dL (80-115); Potassium 4.5 mmol/L (3.5-5.1); Sodium 141 mmol/L (136-145)
[2021-09-05 14:17] LABS: Anisocytosis SLIGHT = 6-15 cells (100X) (0-5/hpf); Hypochromia SLIGHT = 6-15 cells (100X) (0-5/hpf); Microcytosis SLIGHT = 6-15 cells (100X) (0-5/hpf); Ovalocytes SLIGHT = 2-5 cells (100X) (0-1/hpf); Platelet Morphology Comment Appears Adequate; Polychromasia SLIGHT = 2-3 cells (100X) (0-2/hpf)
[2021-09-05 22:15] LABS: SARS-CoV-2 PCR by NAA Not Detected (NotDetected)
== END 2021-09-05 13:03 | disposition home or self-care (01) ==
LOC: LABBT 13:02
PROVIDERS: ATTEND Thoracic Surgery (Cardiothoracic Vascular Surgery)
DX: Z01.812 Encounter for preprocedural laboratory examination (principal); I65.22 Occlusion and stenosis of left carotid artery; Z20.822 Contact with and (suspected) exposure to COVID-19
CPT/HCPCS: 80048; 85025; U0003; U0005